=== PATIENT | female | born 1955 | race African-American/Black ===

== ENCOUNTER 2020-03-14 08:44 | Outpatient (REF) | payer OTHER, SELFPAY ==
--- NOTE | 2020-03-14 08:49 | MM_ITS ---
EXAMINATION: MM SCREENING DIGITAL BREAST TOMOSYNTHESIS, BILATERAL CLINICAL INFORMATION: Screening. Asymptomatic. The lifetime risk of breast cancer based on the Tyrer-Cuzick Model is 19.8%. COMPARISON: Mammography: November 24, 2018 and studies dating back to January 20, 2010 TECHNIQUE: Digital breast tomosynthesis is performed in both the craniocaudal and mediolateral oblique views along with computer-aided detection (CAD). Synthesized 2D images are generated from the tomosynthesis. FINDINGS: There are scattered areas of fibroglandular density (ACR BI-RADS breast composition Category b). There are no significant masses, abnormal calcifications, or other abnormalities. MM/MM tomosynthesis screening BI IMPRESSION: There are no significant changes from prior study. ASSESSMENT: BI-RADS 1: Negative RECOMMENDATION: Routine annual mammography screening. This patient's information was entered into a reminder system with a target due date for their next mammogram.
== END 2020-03-14 08:45 | disposition home or self-care (01) ==
LOC: HO.MAMMO 08:44
PROVIDERS: PCP Internal Medicine; Visit Provider Internal Medicine
DX: Z12.31 Encounter for screening mammogram for malignant neoplasm of breast (principal)
CPT/HCPCS: 77063; 77067

== ENCOUNTER 2020-03-18 09:04 | Outpatient (REF) | payer OTHER, SELFPAY ==
[2020-03-18 10:37] LABS: Alanine Aminotransferase 35 U/L (0-31); Albumin Level 4.5 g/dL (3.5-5.0); Alkaline Phosphatase 66 U/L (39-117); Anion Gap 13 (12-20); Aspartate Amino Transferase 31 U/L (5-31); Bilirubin Total 0.3 mg/dL (0.0-1.0); Blood Urea Nitrogen 19 mg/dL (9-16); Calcium 9.2 mg/dL (8.4-10.2); Carbon Dioxide 27 mmol/L (22-29); Chloride 103 mmol/L (96-108); Estimated Glomerular Filt Rate 56; Glucose Fasting 121 mg/dL (60-99); Potassium 3.9 mmol/l (3.3-5.1); Sodium 139 mmol/L (135-145); Total Protein 7.4 g/dL (6.5-8.0)
[2020-03-18 10:57] LABS: TSH reflex Free T4 1.01 mIU/mL (0.32-4.0)
[2020-03-18 11:10] LABS: Creatinine Urine 100.71 mg/dL; Microalbum/Creatinine Ratio Ur 29.7 ug/mg cr
== END 2020-03-18 09:05 | disposition home or self-care (01) ==
LOC: HO.LAB 09:04
PROVIDERS: PCP Internal Medicine; Visit Provider Physician Assistant
DX: E11.9 Type 2 diabetes mellitus without complications (principal)
CPT/HCPCS: 80053; 82043; 84443

== ENCOUNTER 2020-06-17 10:29 | Outpatient (REF) | payer OTHER, SELFPAY ==
[2020-06-17 11:43] LABS: Alanine Aminotransferase 34 U/L (0-31); Albumin Level 4.6 g/dL (3.5-5.0); Alkaline Phosphatase 63 U/L (39-117); Anion Gap 15 (12-20); Aspartate Amino Transferase 25 U/L (5-31); Bilirubin Total 0.4 mg/dL (0.0-1.0); Blood Urea Nitrogen 17 mg/dL (9-16); Calcium 9.7 mg/dL (8.4-10.2); Carbon Dioxide 26 mmol/L (22-29); Chloride 103 mmol/L (96-108); Cholesterol 292 mg/dL; Estimated Glomerular Filt Rate 59; Glucose Fasting 100 mg/dL (60-99); HDL Cholesterol 47 mg/dL; LDL Cholesterol Calculated 213 mg/dl; Potassium 4.1 mmol/L (3.3-5.1); Sodium 140 mmol/L (135-145); Total Protein 7.5 g/dL (6.5-8.0); Triglycerides 160 mg/dL
[2020-06-17 11:51] LABS: Estimated Average Glucose 123 mg/dL; Hemoglobin A1c % 5.9 %
[2020-06-17 11:53] LABS: Creatinine Urine 123.18 mg/dL; Microalbum/Creatinine Ratio Ur 19.4 ug/mg cr
[2020-06-17 12:06] LABS: TSH reflex Free T4 0.93 uIU/mL (0.32-4.0)
== END 2020-06-17 10:30 | disposition home or self-care (01) ==
LOC: HO.LAB 10:29
PROVIDERS: PCP Internal Medicine; Visit Provider Physician Assistant
DX: E11.9 Type 2 diabetes mellitus without complications (principal); I10 Essential (primary) hypertension
CPT/HCPCS: 36415; 80053; 80061; 82043; 83036; 84443

== ENCOUNTER 2020-11-17 08:27 | Outpatient (REF) | payer OTHER, SELFPAY ==
[2020-11-17 09:04] LABS: Hematocrit 40.5 % (37-47); Hemoglobin 13.5 g/dl (12.0-16.0); Mean Corpuscular HGB Conc 33.3 g/dl (31.0-35.0); Mean Corpuscular Hemoglobin 30.8 pg (27.0-33.0); Mean Corpuscular Volume 92.3 fL (80-98); Mean Platelet Volume 9.3 fL (9.4-12.3); Platelet Count 273 X10*3/uL (160-400); Red Blood Count 4.39 X10*6/uL (4.20-5.50); Red Cell Distribution Width 12.8 % (11.0-16.0); White Blood Count 7.2 X10*3/uL (4.8-10.8)
[2020-11-17 09:27] LABS: Glucose Urine UA NEG (NEG); Leukocyte Esterase Urine NEG (NEG); Nitrite Urine NEG (NEG); Specific Gravity - Urine 1.015 (1.005-1.025); Urine Blood NEG (NEG); Urine Ketones NEG (NEG); Urine Protein TRACE MG/DL (NEG-TRACE)
[2020-11-17 09:28] LABS: Appearance Urine HAZY; Color Urine YELLOW
[2020-11-17 09:33] LABS: Alanine Aminotransferase 55 U/L (0-31); Albumin Level 4.7 g/dL (3.5-5.0); Alkaline Phosphatase 70 U/L (39-117); Anion Gap 18 (12-20); Aspartate Amino Transferase 61 U/L (5-31); Bilirubin Direct 0.2 mg/dL (0.0-0.5); Bilirubin Total 0.5 mg/dL (0.0-1.0); Blood Urea Nitrogen 14 mg/dL (9-16); Calcium 10.1 mg/dL (8.4-10.2); Carbon Dioxide 24 mmol/L (22-29); Chloride 103 mmol/L (96-108); Cholesterol 316 mg/dL; Estimated Glomerular Filt Rate 52; Glucose Random 133 mg/dL (60-115); HDL Cholesterol 49 mg/dL; LDL Cholesterol Calculated 222 mg/dl; Potassium 4.6 mmol/L (3.3-5.1); Sodium 140 mmol/L (135-145); Total Protein 8.3 g/dL (6.5-8.0); Triglycerides 228 mg/dL
[2020-11-17 09:50] LABS: Thyroid Stimulating Hormone 1.14 uIU/mL (0.32-4.0)
== END 2020-11-17 08:28 | disposition home or self-care (01) ==
LOC: HO.LAB 08:27
PROVIDERS: PCP Internal Medicine; Visit Provider Internal Medicine
DX: Z00.01 Encounter for general adult medical examination with abnormal findings (principal); E78.00 Pure hypercholesterolemia, unspecified; E11.9 Type 2 diabetes mellitus without complications; F33.41 Major depressive disorder, recurrent, in partial remission; I10 Essential (primary) hypertension
CPT/HCPCS: 36415; 80048; 80061; 80076; 81003; 84443; 85027

== ENCOUNTER 2020-11-27 09:54 | Outpatient (REF) | payer OTHER, SELFPAY ==
[2020-11-29 21:17] LABS: HPV mRNA E6/E7 rflx Not Detected (Not Detected)
== END 2020-11-27 09:55 | disposition home or self-care (01) ==
LOC: HO.LAB 09:54
PROVIDERS: PCP Internal Medicine; Visit Provider Obstetrics & Gynecology
DX: Z01.419 Encounter for gynecological examination (general) (routine) without abnormal findings (principal); N95.1 Menopausal and female climacteric states
CPT/HCPCS: 87624; 88142

== ENCOUNTER 2020-12-12 13:30 | Outpatient (REF) | payer OTHER, SELFPAY | END 2020-12-12 13:31 | disposition home or self-care (01) | LOC: HO.LAB 13:30 | PROVIDERS: Visit Provider Nurse Practitioner Family | DX: Z20.822 Contact with and (suspected) exposure to COVID-19 (principal); R05 Cough | CPT/HCPCS: U0003; U0005 ==

== ENCOUNTER 2021-01-02 11:10 | Outpatient (REF) | payer OTHER, SELFPAY | END 2021-01-02 11:11 | disposition home or self-care (01) | LOC: HO.LAB 11:10 | PROVIDERS: Visit Provider Obstetrics & Gynecology | DX: R87.610 Atypical squamous cells of undetermined significance on cytologic smear of cervix (ASC-US) (principal) | CPT/HCPCS: 57454; 88305 ==

== ENCOUNTER 2021-01-03 10:55 | Outpatient (REF) | payer OTHER, SELFPAY ==
--- NOTE | ~2021-01-03 | MM_ITS ---
EXAMINATION: BONE DENSITOMETRY CLINICAL INDICATION: Menopausal female climacteric states. COMPARISON: No prior bone densitometry. Comparison made with CT abdomen and pelvis 05/14/2015 for lumbar segmentation assessment. TECHNIQUE: Using a [employer] DXA System (software version: 13.1) manufactured by [employer], dual-energy x-ray absorptiometry was performed of the lumbar spine and left hip. The images are of good technical quality. Summary results are attached. 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 L1-L4 (excluding L3): The data of L1-L4 has been changed to exclude the L3 vertebral body, because degenerative changes at this level may cause overestimation of lumbar spine density. BMD 1.489 g/cm2, Z-score 2.5, T-score 2.7, normal. LEFT FEMUR, NECK: BMD 1.020 g/cm2, Z-score -0.3, T-score -0.1, normal. LEFT FEMUR, TOTAL: BMD 1.153 g/cm2, Z-score 0.6, T-score 1.2, normal. IDENTIFIED RISK FACTORS: Menopause, hysterectomy. HISTORY OF FRACTURE: None listed. MEDICATIONS: Vitamin D. MM/XR DEXA axial skeleton IMPRESSION: 1. DIAGNOSIS: Normal bone density based on the lowest T-score value of -0.1 in the femoral neck applying World Health Organization criteria. 2. 10-YEAR FRACTURE RISK PREDICTION, FRAX: Major osteoporotic fracture (clinical spine, forearm, hip or shoulder) 2.8%. Hip fracture 0.1%. 3. Treatment Recommendations: NOF guidelines recommend consideration for treatment in postmenopausal women and men age 50 and older presenting with the following: -A hip or vertebral (clinical or morphometric) fracture. -T-score less than or equal to -2.5 at the femoral neck or spine after appropriate evaluation to exclude secondary causes. -Low bone mass at the hip or spine and a 10-year fracture probability by FRAX of greater than or equal to 3% for hip fracture or greater than or equal to 20% for major osteoporotic fracture based on the [place] adapted WHO algorithm. 4. Other Recommendations: All treatment decisions require clinical judgment and consideration of individual patient factors, including patient preferences, comorbidities, previous drug use, risk factors not captured in the FRAX model (e.g. frailty, falls, vitamin D deficiency, increased bone turnover, interval significant decline in bone density) and possible under or overestimation of fracture risk by FRAX. FUTURE SCAN RECOMMENDATION: People with diagnosed cases of osteoporosis or at high risk for fracture should have regular bone mineral density tests. For patients eligible for Medicare, routine testing is allowed once every 2 years. The testing frequency can be increased to one year for patients who have rapidly progressing disease, those who are receiving or discontinuing medical therapy to restore bone mass, or have additional risk factors.
== END 2021-01-03 10:56 | disposition home or self-care (01) ==
LOC: HO.MAMMO 10:55
PROVIDERS: Visit Provider Obstetrics & Gynecology
DX: Z13.820 Encounter for screening for osteoporosis (principal); N95.1 Menopausal and female climacteric states; Z98.890 Other specified postprocedural states; Z79.899 Other long term (current) drug therapy
CPT/HCPCS: 77080

== ENCOUNTER → 2021-01-16 12:58 | Outpatient (BNVA) | payer OTHER, SELFPAY | PROVIDERS: Visit Provider Obstetrics & Gynecology ==

== ENCOUNTER 2021-06-06 15:50 | Outpatient (REF) | payer OTHER, SELFPAY ==
--- NOTE | ~2021-06-06 | MM_ITS ---
EXAMINATION: MM SCREENING DIGITAL BREAST TOMOSYNTHESIS, BILATERAL CLINICAL INFORMATION: Screening. Asymptomatic. Family history breast cancer, mother. The lifetime risk of breast cancer based on the Tyrer-Cuzick Model is 19%. COMPARISON: Mammography: 03/14/2020, 11/24/2018, 11/01/2017 TECHNIQUE: Digital breast tomosynthesis is performed in both the craniocaudal and mediolateral oblique views along with computer-aided detection (CAD). Synthesized 2D images are generated from the tomosynthesis. FINDINGS: There are scattered areas of fibroglandular density (ACR BI-RADS breast composition Category b). There are no significant masses, abnormal calcifications, or other abnormalities. Parenchymal pattern is similar to prior studies. There is no developing density or architectural abnormality. The axilla and skin contours are unremarkable. No significant changes. MM/MM tomosynthesis screening BI IMPRESSION: No mammographic evidence of malignancy. ASSESSMENT: BI-RADS 1: Negative RECOMMENDATION: Routine annual mammography screening. This patient's information was entered into a reminder system with a target due date for their next mammogram.
== END 2021-06-06 15:51 | disposition home or self-care (01) ==
LOC: HO.MAMMO 15:50
PROVIDERS: PCP Internal Medicine; Visit Provider Internal Medicine
DX: Z12.31 Encounter for screening mammogram for malignant neoplasm of breast (principal)
CPT/HCPCS: 77063; 77067

== ENCOUNTER 2021-08-23 11:34 | Outpatient (REF) | payer OTHER, SELFPAY ==
[2021-08-23 12:44] LABS: Hematocrit 38.3 % (37.0-47.0); Hemoglobin 13.1 g/dl (12.0-16.0); Mean Corpuscular HGB Conc 34.2 g/dl (31.0-35.0); Mean Corpuscular Hemoglobin 31.4 pg (27.0-33.0); Mean Corpuscular Volume 91.8 fL (80.0-98.0); Mean Platelet Volume 9.7 fL (9.4-12.3); Platelet Count 302 X10*3/uL (160-400); Red Blood Count 4.17 X10*6/uL (4.20-5.50); Red Cell Distribution Width 12.5 % (11.0-16.0)
[2021-08-23 12:47] LABS: Appearance Urine CLEAR; Color Urine YELLOW; Glucose Urine UA NEG (NEG); Leukocyte Esterase Urine NEG (NEG); Nitrite Urine NEG (NEG); Urine Blood NEG (NEG); Urine Ketones NEG (NEG); Urine Protein NEG (NEG-TRACE)
[2021-08-23 14:03] LABS: Alanine Aminotransferase 28 U/L (0-31); Albumin Level 4.5 g/dL (3.5-5.0); Alkaline Phosphatase 59 U/L (39-117); Anion Gap 15 (12-20); Aspartate Amino Transferase 25 U/L (5-31); Bilirubin Direct 0.2 mg/dL (0.0-0.5); Bilirubin Total 0.5 mg/dL (0.0-1.0); Blood Urea Nitrogen 19 mg/dL (9-16); Calcium 9.9 mg/dL (8.4-10.2); Carbon Dioxide 26 mmol/L (22-29); Chloride 102 mmol/L (96-108); Cholesterol 275 mg/dL; Estimated Glomerular Filt Rate 57; Glucose Random 90 mg/dL (60-115); HDL Cholesterol 47 mg/dL; LDL Cholesterol Calculated 200 mg/dl; Potassium 4.1 mmol/L (3.3-5.1); Sodium 139 mmol/L (135-145); Total Protein 7.5 g/dL (6.5-8.0); Triglycerides 144 mg/dL
[2021-08-23 14:17] LABS: Thyroid Stimulating Hormone 0.99 uIU/mL (0.32-4.0)
== END 2021-08-23 11:35 | disposition home or self-care (01) ==
LOC: HO.LAB 11:34
PROVIDERS: Absent Provider Plastic Surgery; PCP Internal Medicine; Visit Provider Internal Medicine
DX: E11.9 Type 2 diabetes mellitus without complications (principal); E78.00 Pure hypercholesterolemia, unspecified
CPT/HCPCS: 36415; 80048; 80061; 80076; 81003; 84443; 85027

== ENCOUNTER 2022-01-08 09:25 | Outpatient (REF) | payer OTHER, SELFPAY ==
[2022-01-12 00:27] LABS: HPV mRNA E6/E7 rflx Not Detected (Not Detected)
== END 2022-01-08 09:26 | disposition home or self-care (01) ==
LOC: HO.LAB 09:25
PROVIDERS: Visit Provider Obstetrics & Gynecology
DX: N87.0 Mild cervical dysplasia (principal); R87.610 Atypical squamous cells of undetermined significance on cytologic smear of cervix (ASC-US)
CPT/HCPCS: 87624; 88142

== ENCOUNTER 2022-07-30 06:17 | Outpatient (REF) | payer OTHER, SELFPAY ==
[2022-07-30 07:36] LABS: Hematocrit 38.3 % (37.0-47.0); Hemoglobin 12.9 g/dl (12.0-16.0); Mean Corpuscular HGB Conc 33.7 g/dl (31.0-35.0); Mean Corpuscular Hemoglobin 30.6 pg (27.0-33.0); Mean Corpuscular Volume 90.8 fL (80.0-98.0); Mean Platelet Volume 9.7 fL (9.4-12.3); Platelet Count 349 X10*3/uL (160-400); Red Blood Count 4.22 X10*6/uL (4.20-5.50); Red Cell Distribution Width 12.2 % (11.0-16.0); White Blood Count 8.6 X10*3/uL (4.8-10.8)
[2022-07-30 07:51] LABS: Appearance Urine Clear; Color Urine Yellow; Glucose Urine UA Negative (Negative); Leukocyte Esterase Urine Negative (Negative); Nitrite Urine Negative (Negative); Specific Gravity - Urine 1.015 (1.005-1.025); Urine Blood Negative (Negative); Urine Ketones Negative (Negative); Urine Protein Negative (Neg-Trace)
[2022-07-30 08:15] LABS: Estimated Average Glucose 123 mg/dL; Hemoglobin A1c % 5.9 %
[2022-07-30 08:20] LABS: Alanine Aminotransferase 27 U/L (0-31); Albumin Level 4.4 g/dL (3.5-5.0); Alkaline Phosphatase 70 U/L (39-117); Anion Gap 15 (12-20); Aspartate Amino Transferase 25 U/L (5-31); Bilirubin Direct 0.2 mg/dL (0.0-0.5); Bilirubin Total 0.9 mg/dL (0.0-1.0); Blood Urea Nitrogen 22 mg/dL (9-16); Calcium 9.8 mg/dL (8.4-10.2); Carbon Dioxide 28 mmol/L (22-29); Chloride 101 mmol/L (96-108); Cholesterol 317 mg/dL; Estimated Glomerular Filt Rate 46; Glucose Random 115 mg/dL (60-115); HDL Cholesterol 50 mg/dL; LDL Cholesterol Calculated 232 mg/dl; Potassium 4.1 mmol/L (3.3-5.1); Sodium 140 mmol/L (135-145); Total Protein 7.4 g/dL (6.5-8.0); Triglycerides 179 mg/dL
[2022-07-30 08:40] LABS: Thyroid Stimulating Hormone 2.84 uIU/mL (0.32-4.0)
== END 2022-07-30 06:18 | disposition home or self-care (01) ==
LOC: HO.LAB 06:17
PROVIDERS: PCP Internal Medicine; Visit Provider Internal Medicine
DX: E11.9 Type 2 diabetes mellitus without complications (principal)
CPT/HCPCS: 36415; 80048; 80061; 80076; 81003; 83036; 84443; 85027

== ENCOUNTER 2022-12-05 08:49 | Outpatient (AMB) | payer OTHER, SELFPAY ==
--- NOTE | 2022-12-05 09:18 | MHC.PC.OV ---
Vital Signs 12/05/22 09:19 Height 5 ft 5 in Weight 195 lb 8 oz BMI 32.5 BP 110/70 Blood Pressure Location Lt brachial Position Sitting Pulse 58 Pulse Source Pulse Oximeter Pulse Oximetry (%) 100 Oxygen Delivery Method Room Air Intake Visit Reasons: 6 month follow up Intake Note: Patient is here to follow up on DM, HTN. Requesting a referral to Dermatology. Skiver Machine Required: No Pet Caretaker: Not Required per policy Accompanied by: Self / Same As Patient Allergies lisinopril [LISINOPRIL] Allergy (Severe, Verified 12/05/22 09:19) ? ANAPHYLAXIS Egg Derived [EGG DERIVED] Allergy (Unknown, Verified 12/05/22 09:19) ANAPHYLAXIS Egg White (Diagnostic) Allergy (Unknown, Uncoded 12/05/22 09:19) GI upset Tobacco use date assessed: 12/05/22 Fall risk assessment: No Falls in past year Last assessed Fall Risk: 12/05/22 Dental Screening Dental Screen Date: 12/05/22 Did you have a dental visit in the last 12 months?: Yes Did you have a dental problem in the last 6 months where you did not have access to dental care?: No Was dental information given to patient?: Patient has dentist HPI 6 month follow up HPI Details 67-year-old female presents to the office to discuss her chronic medical conditions. Patient has a new insurance and would like a there referral to Dermatology be recent again. This is for her psoriasis. Patient is undergoing physical therapy to improve mobility in her right and left arms and shoulder. This is after her double mastectomy. Her depression symptoms are stable. Able to function and do all activities of daily living. Compliant with all medications. Unable to hear from the left ear. [facility] Medical History HTN (hypertension) Hypercholesterolemia Major depression in partial remission Obesity (BMI 30.0-34.9) Transgender Surgical History (Updated 12/05/22 @ 09:26 by CATALINO Choudhury) Glaucoma, left eye History of dental surgery History of hysterectomy History of mastectomy History of oral surgery Family History Father No problems noted. Mother Breast cancer Brother AIDS Other Mental health disorder Substance use disorder Social History Housing: House Alcohol intake: current Alcohol intake frequency: a few times a month Alcohol type: beer Patient Tobacco Use Status: Never used Tobacco e-Cigarette/Vaping Use: Never Used Second Hand Smoke Exposure: No service: No Current occupational status: employed Cognitive needs: No Hearing needs: No Vision needs: Yes (glasses) Female Reproductive History Menstrual Age of Menarche: 12 Questionnaire Thrive Questionnaire Date Thrive assessed: 06/13/22 RK-7 AMB Questionnaire RK-7 Date RK - 7 assessed: 06/13/22 Source: Developed by Drs. Shekhar Yancey, Iesha Phoenix, Antonio Lux and colleagues, with an educational kelly from [employer]. Physical exam (Primary Care) Vital Signs: Last Vital Signs Pulse 58 12/05/22 09:19 BP 110/70 12/05/22 09:19 Pulse Ox 100 12/05/22 09:19 Oxygen Delivery Method Room Air 12/05/22 09:19 BMI result Body Mass Index 32.5 Tobacco/Smoking Status: Tobacco use Status Tobacco use date assessed 12/05/22 12/05/22 09:28 Patient Tobacco Use Status Never used Tobacco 12/05/22 09:28 e-Cigarette/Vaping Use Never Used 12/05/22 09:28 Thrive Assessment: Date of Thrive Assessment Date Thrive assessed 06/13/22 12/05/22 09:28 Const General: cooperative, healthy appearing and comfortable HENMT Other: Left ear: Wax present. Tympanic membrane not visualized. Head: Yes normal to inspection and Yes atraumatic Eyes General: appearance normal, both eyes and all related structures Neck Neck: Yes normal visual inspection and Yes full ROM Chest Chest palpation & inspection: normal inspection of the chest Resp Effort & Inspection: normal respiratory effort Auscultation: clear to auscultation bilaterally Cardio Jugular venous distension: no JVD Palpation: normal PMI Rate: regular rate Heart sounds: S1 normal heart sound present and S2 normal heart sound present GI Palpation (GI): Soft to palpation and No hepatosplenomegaly present Extrem General: Yes normal to inspection and Yes full ROM Office Procedures Cerumen Removal From which ear canal was the cerumen removed: left Removal: otoscope w/curette and cerumen loop/spoon Notes: patient tolerated procedure well [id number] Wax Removal by Spoon/Curette Results AMB Hemoglobin A1c AMB Hemoglobin A1c 5.9 % Last Edit by CATALINO Choudhury on 12/05/22 09:29 Results Reviewed Results Reviewed: Laboratory Last Values Hgb A1c (Clinic) 5.9 % (4.0-6.0) 12/05/22 09:17 Assessment and Plan Assessment & Plan (1) Major depression in partial remission: Code(s): F32.4 - Major depressive disorder, single episode, in partial remission Qualifiers: Major depression recurrence: recurrent Qualified Code(s): F33.41 - Major depressive disorder, recurrent, in partial remission Plan: Continue current medications. (2) Diabetes: Code(s): E11.9 - Type 2 diabetes mellitus without complications Qualifiers: Diabetes mellitus type: type 2 Diabetes mellitus group home insulin use: without intermediate manager use Diabetes mellitus complication status: without complication Qualified Code(s): E11.9 - Type 2 diabetes mellitus without complications Plan: Blood work has been ordered. Continue medications at same dosage. (3) Obesity (BMI 30.0-34.9): Code(s): E66.9 - Obesity, unspecified Plan: Counseling on the importance of diet and exercise done. (4) Impacted cerumen, left ear: Code(s): H61.22 - Impacted cerumen, left ear Plan: Wax removed. Patient tolerated the procedure well. Orders: Orders AMB Hemoglobin A1c Today E11.9 - Type 2 diabetes mellitus without complications AMB Cerumen Removal Today H61.22 - Impacted cerumen, left ear Coding Level of Care Code Est Pt Level 4 (83052) Diagnoses Major depression in partial remission F33.41 Major depression recurrence: recurrent Diabetes E11.9 Diabetes mellitus type: type 2 Diabetes mellitus intermediate manager insulin use: without intermediate manager use Diabetes mellitus complication status: without complication Obesity (BMI 30.0-34.9) E66.9 Impacted cerumen, left ear H61.22 CPT Codes Office Procedure - CPT: 30496-Wrc Wax Removal by Spoon/Curette ([id number])
[2022-12-05 09:19] VITALS: BP 110/70; PULSE 58; O2SAT 100; BMI 32.5
== END 2022-12-05 10:06 | disposition home or self-care (01) ==
PROVIDERS: Visit Provider Internal Medicine
DX: E11.9 Type 2 diabetes mellitus without complications (principal); E66.9 Obesity, unspecified; Z68.32 Body mass index [BMI] 32.0-32.9, adult; H61.22 Impacted cerumen, left ear; F33.41 Major depressive disorder, recurrent, in partial remission
CPT/HCPCS: 69210; 83036; 99214

== ENCOUNTER 2023-01-03 09:10 | Outpatient (REF) | payer OTHER, SELFPAY ==
[2023-01-03 10:03] LABS: Hemoglobin 13.5 g/dl (12.0-16.0); Mean Corpuscular HGB Conc 32.9 g/dl (31.0-35.0); Mean Corpuscular Hemoglobin 30.8 pg (27.0-33.0); Mean Corpuscular Volume 93.4 fL (80.0-98.0); Mean Platelet Volume 9.9 fL (9.4-12.3); Platelet Count 250 X10*3/uL (160-400); Red Blood Count 4.39 X10*6/uL (4.20-5.50); Red Cell Distribution Width 12.4 % (11.0-16.0); White Blood Count 5.9 X10*3/uL (4.8-10.8)
[2023-01-03 11:02] LABS: Alanine Aminotransferase 27 U/L (0-31); Albumin Level 4.4 g/dL (3.5-5.0); Alkaline Phosphatase 66 U/L (39-117); Anion Gap 12 (12-20); Aspartate Amino Transferase 25 U/L (5-31); Bilirubin Direct 0.1 mg/dL (0.0-0.5); Bilirubin Total 0.3 mg/dL (0.0-1.0); Blood Urea Nitrogen 22 mg/dL (9-16); Calcium 10.1 mg/dL (8.4-10.2); Carbon Dioxide 27 mmol/L (22-29); Chloride 106 mmol/L (96-108); Cholesterol 244 mg/dL (<200); Estimated Glomerular Filt Rate 47; Glucose Random 117 mg/dL (60-115); HDL Cholesterol 47 mg/dL (>40); LDL Cholesterol Calculated 176 mg/dL (<100); Potassium 4.2 mmol/L (3.3-5.1); Sodium 141 mmol/L (135-145); Total Protein 7.9 g/dL (6.5-8.0); Triglycerides 105 mg/dL (<150)
[2023-01-03 11:03] LABS: Estimated Average Glucose 114 mg/dL; Hemoglobin A1c % 5.6 % (<6.0)
[2023-01-03 12:49] LABS: Creatinine Urine 151.57 mg/dL; Microalbum/Creatinine Ratio Ur 7.9 ug/mg cr (<30)
== END 2023-01-03 09:11 | disposition home or self-care (01) ==
LOC: HO.LAB 09:10
PROVIDERS: PCP Internal Medicine; Visit Provider Internal Medicine
DX: F32.4 Major depressive disorder, single episode, in partial remission (principal); E11.9 Type 2 diabetes mellitus without complications
CPT/HCPCS: 36415; 80048; 80061; 80076; 82043; 83036; 85027

== ENCOUNTER 2023-01-28 07:22 | Outpatient (AMB) | payer OTHER, SELFPAY ==
--- NOTE | 2023-01-28 07:30 | MHC.OFFVIS ---
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 ANAPHYLAXIS Egg Derived [EGG DERIVED] Allergy (Unknown, Verified 01/28/23 07:33) ANAPHYLAXIS Egg White (Diagnostic) Allergy (Unknown, Uncoded 01/28/23 07:33) GI upset Post menopausal: Yes HPI HPI Comments History of Present Illness Details Presenting for annual exam. No complaints. Last Pap/HPV was negative, in 11/29 Pap/HPV showed ASCUS HPV negative, colpo biopsy/ECC showed LILIANA 1 Last Mammogram was BI-RADS 1 in 06/02, patient had bilateral mastectomy for transgender reasons Last Colonoscopy was 5 years ago, next screening colonoscopy is due this year year Last DEXA scan was in 01/30 showed osteopenia in the low risk category [facility] Medical History (Updated 01/28/23 @ 07:45 by Minh Barron MD) Dysplasia of cervix, low grade (LILIANA 1) Transgender Hypercholesterolemia Major depression in partial remission Obesity (BMI 30.0-34.9) HTN (hypertension) Surgical History History of dental surgery History of mastectomy Glaucoma, left eye History of oral surgery History of hysterectomy Family History Father No problems noted. Mother Breast cancer Brother AIDS Other Mental health disorder Substance use disorder Social History Housing: House Alcohol intake: current Alcohol intake frequency: a few times a month Alcohol type: beer Patient Tobacco Use Status: Never used Tobacco e-Cigarette/Vaping Use: Never Used Second Hand Smoke Exposure: No service: No Current occupational status: employed Cognitive needs: No Hearing needs: No Vision needs: Yes (glasses) Female Reproductive History Menstrual Age of Menarche: 12 Menopause type: natural Review of Systems Const All systems reviewed & are unremarkable except as noted in HPI and below Card Reports as per HPI Resp Reports as per HPI GI Reports as per HPI and Reports no additional complaints Reports as per HPI Physical Exam Vital Signs: Last Vital Signs BP 122/76 01/28/23 07:32 BMI result Body Mass Index 30.3 Const General: cooperative, healthy appearing and comfortable Chest Other: Patient is status post bilateral mastectomy Resp Effort & Inspection: normal respiratory effort Auscultation: clear to auscultation bilaterally Percussion: percussion normal Cardio Palpation: normal PMI Rate: regular rate Rhythm: regular rhythm Heart sounds: no murmurs and no rubs Peripheral pulses: Peripheral pulses 2+ throughout GI Inspection: Yes normal to inspection Palpation (GI): Soft to palpation, nontender, no guarding, not rigid and No hepatosplenomegaly present Percussion: Yes normal to percussion Auscultation: normal bowel sounds Rectal Exam - Female: deferred General: Yes bladder normal to palpation External Female Exam: No lesion Speculum Exam - Vagina: normal appearance of the vagina, normal palpation, normal vaginal discharge and not erythematous Speculum Exam - Cervix: normal appearance of the cervix and normal palpation Bimanual exam- vagina & uterus: normal bimanual exam, normal palpation, uterine size normal, bladder normal to palpation, consistency normal and normal palpation Bimanual Exam- Adnexa, other: normal adnexae, no masses and no tenderness Assessment & Plan Assessment & Plan (1) Well woman exam: Comment: LILIANA 1 in 2020 Code(s): Z01.419 - Encounter for gynecological examination (general) (routine) without abnormal findings Plan: Co testing not this year since the patient had normal co testing last year preceded by LILIANA 1, per ASCCP guidelines next co testing will be in 2024. Counseled the patient about the recommended dietary allowance of 1200 mg of Calcium & 800 IU of vitamin D. Referred her for screening colonoscopy done. Will order DEXA scan . The patient was instructed to perform monthly self-breast exams and to schedule a 2 week DEXA scan follow-up appointment and an annual exam in a year; all questions answered and the patient verbalized understanding. Orders: Orders XR DEXA axial skeleton Today N95.1 - Menopausal and female climacteric states Referrals Gastroenterology Referral Z12.11 - Encounter for screening for malignant neoplasm of colon Coding Level of Care Code Est Pt Prev Care >65y(95705) Diagnoses Well woman exam Z01.419
[2023-01-28 07:32] VITALS: BP 122/76; BMI 30.3
== END 2023-01-28 07:54 | disposition home or self-care (01) ==
PROVIDERS: Visit Provider Obstetrics & Gynecology
DX: Z01.419 Encounter for gynecological examination (general) (routine) without abnormal findings (principal)
CPT/HCPCS: 99397

== ENCOUNTER → 2023-01-28 07:22 | Outpatient (BNVA) | payer OTHER, SELFPAY | PROVIDERS: Visit Provider Obstetrics & Gynecology ==

== ENCOUNTER 2023-02-19 08:04 | Outpatient (REF) | payer OTHER, SELFPAY | END 2023-02-19 08:05 | disposition home or self-care (01) | LOC: HO.MAMMO 08:04 | PROVIDERS: PCP Internal Medicine; Visit Provider Obstetrics & Gynecology | DX: Z13.820 Encounter for screening for osteoporosis (principal); Z78.0 Asymptomatic menopausal state | CPT/HCPCS: 77080 ==

== ENCOUNTER 2023-03-26 07:29 | Outpatient (AMB) | payer OTHER, SELFPAY ==
--- NOTE | 2023-03-26 07:30 | MHC.OFFVIS ---
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 ANAPHYLAXIS Egg Derived [EGG DERIVED] Allergy (Unknown, Verified 03/26/23 07:33) ANAPHYLAXIS Egg White (Diagnostic) Allergy (Unknown, Uncoded 03/26/23 07:33) GI upset Post menopausal: Yes HPI HPI Comments History of Present Illness Details The patient is presenting for follow up regarding DEXA scan results. T score @ spine and femoral Neck respectively were=+2.8 /+0.1 and 10 year FRAX risk for severe osteoporosis and fracture was not computed Bone density at the spine and femur was +5.6%,-3% respectively compared to the baseline BMD. PFSH Medical History Dysplasia of cervix, low grade (LILIANA 1) Transgender Hypercholesterolemia Major depression in partial remission Obesity (BMI 30.0-34.9) HTN (hypertension) Surgical History History of dental surgery History of mastectomy Glaucoma, left eye History of oral surgery History of hysterectomy Family History Father No problems noted. Mother Breast cancer Brother AIDS Other Mental health disorder Substance use disorder Social History Housing: House Alcohol intake: current Alcohol intake frequency: a few times a month Alcohol type: beer Patient Tobacco Use Status: Never used Tobacco e-Cigarette/Vaping Use: Never Used Second Hand Smoke Exposure: No service: No Current occupational status: employed Cognitive needs: No Hearing needs: No Vision needs: Yes (glasses) Female Reproductive History Menstrual Age of Menarche: 12 Review of Systems Const All systems reviewed & are unremarkable except as noted in HPI and below Reports as per HPI and Reports no additional complaints GI Reports no additional complaints Reports no additional complaints Assessment & Plan Assessment & Plan (1) At risk for bone density loss: Code(s): Z91.89 - Other specified personal risk factors, not elsewhere classified Plan: Discussed with the patient the DEXA results and FRAX risk. FRAX risk and T score showed no evidence of bone loss. Discussed with the patient all the options for osteoporosis prevention including lifestyle modifications including Ca+D supplements 1200 mg po qd/800 MIU, Weight bearing exercises and proteine supplements. The patient verbalized understanding and agreed plan will repeat DEXA in 2 years. Coding Level of Care Code Est Pt Level 3 (77967) Diagnoses At risk for bone density loss Z91.89
[2023-03-26 07:33] VITALS: BP 110/62
== END 2023-03-26 09:22 | disposition home or self-care (01) ==
LOC: HO.HWS 07:30
PROVIDERS: PCP Internal Medicine; Visit Provider Obstetrics & Gynecology
DX: Z91.89 Other specified personal risk factors, not elsewhere classified (principal)
CPT/HCPCS: 99213

== ENCOUNTER → 2023-03-26 07:29 | Outpatient (BNVA) | payer OTHER, SELFPAY | PROVIDERS: PCP Internal Medicine; Visit Provider Obstetrics & Gynecology ==

== ENCOUNTER 2023-04-08 08:27 | Outpatient (AMB) | payer OTHER, SELFPAY ==
[2023-04-08 08:30] VITALS: BMI 30.9
--- NOTE | 2023-04-08 08:30 | A.OFFVIS_ITS ---
Intake VS Expanded 04/08/23 08:30 Height 5 ft 5 in Weight 185 lb 10.067 oz BMI 30.9 Intake Visit Reasons: Type 2 diabetes/confirmed Allergies lisinopril [LISINOPRIL] Allergy (Severe, Verified 03/26/23 07:33) ? ANAPHYLAXIS Egg Derived [EGG DERIVED] Allergy (Unknown, Verified 03/26/23 07:33) ANAPHYLAXIS Egg White (Diagnostic) Allergy (Unknown, Uncoded 03/26/23 07:33) GI upset HPI Nutrition Presentation Details Pt presents for MNT for T2DM not on insulin, hypercholesterolemia, obesity, essential HTN, osteopenia. The Pt was referred by Emilia Coleman from [facility]. Pt reports making dietary modficiations for weight loss and improvement in BG. Pt reports trying reducing calories by following a combination of fasting, vegan and non vegan meals in no consistent pattern. Typically Fasts from 7pm-11 am Then has coffee with milk or milk alternative and vitamins 2pm meal : Vegan and vegetarian meals th ree time/week 6 pm meal rice/tofu, water or coconut wa ter, coffee or salad with soy protein ) or pasta /poultry and salad w olive oil and vinegar or soup turkey/carrot etoh- occ smoking: denies physical activity: 3 times/wk at the gym (combination of aerobic and anaerobic for 30 min) fluids per day : 16-24 oz/d fish: 0-1/wk fruits: 0-1/d ve-6 serving/d dairy 2/d ( calcium fortified dairy alternatives) SJK-Rukbxwg-Rg.Jeor Equation Height 5 ft 5 in Weight 186 lb Resting Metabolic Rate 1384.07 Calculated Activity Level Mild Activity Calories Needed to Maintain Weight 1903.10 Diagnosis Nutrition problem #1 food nutri know defi As related to (etiology) #1 diagnosis As evidenced by (sign/symptom) #1 no prior educ - nutri rec Monitoring/Goals Nutrition problem monitoring level of knowledge/skill Nutrition goal/outcome list 3 diab diet goals (Reduce chol, reduce sugar/carbs/include calcium fortified foos choices ) Outcome progress verbalized understanding Learning/Education Readiness to learn good Stages of change action Educational materials provided Yes (meal planning) Most Recent Diabetes Results: Microalb/Creat Ratio 7.9 ug/mg cr (<30) 01/03/23 Cholesterol 244 mg/dL (<200) H 01/03/23 HDL Cholesterol 47 mg/dL (>40) 01/03/23 Triglycerides 105 mg/dL (<150) 01/03/23 Creatinine 1.16 mg/dL (0.5-1.4) 01/03/23 Blood Urea Nitrogen 22 mg/dL (9-16) H 01/03/23 Sodium 141 mmol/L (135-145) 01/03/23 Potassium 4.2 mmol/L (3.3-5.1) 01/03/23 Chloride 106 mmol/L (96-108) 01/03/23 Carbon Dioxide 27 mmol/L (22-29) 01/03/23 Calcium 10.1 mg/dL (8.4-10.2) 01/03/23 AST 25 U/L (5-31) 01/03/23 ALT 27 U/L (0-31) 01/03/23 Total Protein 7.9 g/dL (6.5-8.0) 01/03/23 Albumin 4.4 g/dL (3.5-5.0) 01/03/23 [facility] [place] Medical History Dysplasia of cervix, low grade (LILIANA 1) Transgender Hypercholesterolemia Major depression in partial remission Obesity (BMI 30.0-34.9) HTN (hypertension) Surgical History History of dental surgery History of mastectomy Glaucoma, left eye History of oral surgery History of hysterectomy Family History Father No problems noted. Mother Breast cancer Brother AIDS Other Mental health disorder Substance use disorder Social History Housing: House Alcohol intake: current Alcohol intake frequency: a few times a month Alcohol type: beer Patient Tobacco Use Status: Never used Tobacco e-Cigarette/Vaping Use: Never Used Second Hand Smoke Exposure: No service: No Current occupational status: employed Cognitive needs: No Hearing needs: No Vision needs: Yes (glasses) Female Reproductive History Menstrual Age of Menarche: 12 Assessment & Plan Assessment & Plan (1) Diabetes: Code(s): E11.9 - Type 2 diabetes mellitus without complications Qualifiers: Diabetes mellitus type: type 2 Diabetes mellitus longterm insulin use: without intermediate project manager use Diabetes mellitus complication status: without complication Qualified Code(s): E11.9 - Type 2 diabetes mellitus without complications Plan: wt: 84 kg (03/2023) Est kcal needs as per MSJ: 1900 (40% carb, 30% protein/fat) Est fluid needs as per 25-30 ml/d: 2520 Est prot per day as per 1 g/kg bw: 84 Recommend fiber intake : 8-10 g per day and gradually increase to 25-28 g per day for women and 35-38 g for men or as tolerated Recommend sodium intake per day : less than 2000 mg Educated patient on: ( R = reviewed V = verbalizes understanding N/R = needs review N/A = not applicable * Food sources of carbohydrate, adequate serving sizes and its role in various health conditions: R * Differences between complex carbohydrates a simple carbohydrates, role of fiber in diet: R * Differences between types of fats and role in diet (mono on saturated fat fatty acids, saturated fatty acids, trans fats): R * Food sources of sodium in salt and healthy modifications for heart health in kidney health: NR * Vitamins and minerals: NR - reinforced calcium/vit D sources of foods and combination with exercise * Healthy plate method concept: R V * Physical activity: Benefits a precaution: R * Hypoglycemia protocol (rule of 15): NR * Dietary prevention of Hyperglycemia: R * Mindfful eating strategies Patient Instructions: Incorporate foods with calcium in them- goal 1200 mg calcium per day (beans, nina ty, calcium fortified tofu/dairy/alternatives) Reduce on total carbohydrate at meal time goal less than 60 g of carb at meal time following healthy plate method practice mindful eating strategies Coding Level of Care Code Nutr Indiv Intake (56055) Diagnoses Type 2 diabetes mellitus without complication, without long-term current use of insulin E11.9 Diabetes mellitus type: type 2 Diabetes mellitus longterm insulin use: without intermediate project manager use Diabetes mellitus complication status: without complication Time Spent (min) 30
[2023-04-15 20:56] VITALS: BMI 30.9
== END 2023-04-08 09:09 | disposition home or self-care (01) ==
PROVIDERS: PCP Internal Medicine; Visit Provider Dietitian, Registered
DX: E11.9 Type 2 diabetes mellitus without complications (principal)

== ENCOUNTER → 2023-04-08 08:27 | Outpatient (BNVA) | payer SELFPAY | PROVIDERS: PCP Internal Medicine; Visit Provider Dietitian, Registered | DX: E11.9 Type 2 diabetes mellitus without complications (principal); Z71.3 Dietary counseling and surveillance | CPT/HCPCS: 97802 ==

== ENCOUNTER 2023-05-26 08:17 | Outpatient (AMB) | payer OTHER, SELFPAY ==
--- NOTE | 2023-05-26 08:23 | A.OFFVIS_ITS ---
Intake Vital Signs 05/26/23 08:26 Height 5 ft 5 in Weight 180 lb 12.465 oz BMI 30.1 BP 119/68 Blood Pressure Location Lt brachial Position Sitting Pulse 68 Intake Visit Reasons: Colonoscopy Screening Intake Note: Cj presents in the office as a colonoscopy screening. CC: She states that she has had Dr Serrano in the past and she had precancerous polyps. Allergies lisinopril [LISINOPRIL] Allergy (Severe, Verified 05/26/23 08:27) ? ANAPHYLAXIS Egg Derived [EGG DERIVED] Allergy (Unknown, Verified 05/26/23 08:27) ANAPHYLAXIS Egg White (Diagnostic) Allergy (Unknown, Uncoded 05/26/23 08:27) GI upset HPI Colonoscopy Screening HPI Details 67 year old? female here today for pre c olonoscopy screening.? Last colonoscopy in June of 2019 no polyps found. History of tubular adenoma in the past and recommendation to return in 5 years. She is not due till June of 2024. Patient denies any melena, hematochezia, unintentional weight loss or ribbon like stools. Patient reports that she is not moving her bowels well. Constipation for 1 or 2 days. Patient denies dyspepsia, dysphagia or odynophagia. Denies any other GI concerning symptoms. [facility] Medical History (Updated 03/26/23 @ 07:34 by Minh Barron MD) Dysplasia of cervix, low grade (LILIANA 1) Transgender Hypercholesterolemia Major depression in partial remission Obesity (BMI 30.0-34.9) HTN (hypertension) Surgical History (Updated 05/26/23 @ 08:26 by CATALINO Tomlinson) Hx of colonoscopy History of dental surgery History of mastectomy Glaucoma, left eye History of oral surgery History of hysterectomy Family History (Updated 05/26/23 @ 08:27 by CATALINO Tomlinson) Father No problems noted. Mother Breast cancer Brother AIDS Maternal Aunt Colon cancer Other Mental health disorder Substance use disorder Social History Housing: House Alcohol intake: current Alcohol intake frequency: a few times a month Alcohol type: beer Patient Tobacco Use Status: Never used Tobacco e-Cigarette/Vaping Use: Never Used Second Hand Smoke Exposure: No service: No Current occupational status: employed Cognitive needs: No Hearing needs: No Vision needs: Yes (glasses) Female Reproductive History Menstrual Age of Menarche: 12 Review of Systems Const Denies weight gain and Denies weight loss ENT Reports no additional complaints, Denies dysphagia and Denies odynophagia Card Reports no additional complaints Resp Reports no additional complaints GI Denies abdominal pain, Denies belching, Denies melena, Denies bloating, Reports constipation, Denies dysphagia, Denies excessive flatus, Denies dyspepsia, Denies heartburn, Denies diarrhea, Denies loose stools, Denies nausea, Denies odynophagia and Denies vomiting Reports no additional complaints Musc Reports no additional complaints Neuro Reports no additional complaints Psych Reports no additional complaints Endo Reports no additional complaints Physical Exam Vital Signs: Last Vital Signs Pulse 68 05/26/23 08:26 BP 119/68 05/26/23 08:26 BMI result Body Mass Index 30.1 Const General: healthy appearing, no acute distress and well developed Nutritional Appearance: obese Orientation/consciousness: patient oriented x3 HEENT Head: Yes normal to inspection, Yes normocephalic and Yes atraumatic Face and sinus: Yes normal facial exam Mouth: Normal oral and palatal mucosa present Throat: Yes posterior oropharynx normal, Yes tonsils normal and Yes uvula midline Eyes General: appearance normal, both eyes and all related structures Neck Neck: Yes normal visual inspection, Yes full ROM and Yes trachea midline Thyroid: Thyroid normal Resp Effort & Inspection: normal respiratory effort, able to speak in complete sentences, no tracheal deviation and symmetric chest movement Auscultation: clear to auscultation bilaterally Cardio Rate: regular rate GI Inspection: Yes normal to inspection, No distended and Yes obesity Palpation (GI): Soft to palpation, not firm, nontender and No hepatosplenomegaly present Auscultation: normal bowel sounds General: Yes no CVA tenderness Back/Spine/Pelvis Back: no CVA tenderness Skin General skin exam: elasticity normal, turgor normal and dry skin Neuro General: patient oriented x3 Psych Appearance: grossly normal Mental Status: mental status grossly normal Assessment & Plan Assessment & Plan (1) Screen for colon cancer: Code(s): Z12.11 - Encounter for screening for malignant neoplasm of colon Plan: (2) Constipation: Code(s): K59.00 - Constipation, unspecified Qualifiers: Constipation type: slow transit constipation Qualified Code(s): K59.01 - Slow transit constipation Plan Patient will start taking magnesium daily. Patient will increase fluids intake and activity to promote better bowel motility. Patient will return in April and we will discuss going for colonoscopy. Patient will call our office sooner if she will have any GI concerning symptoms. Patient and her senior data warehouse architect are agreeable to plan of care and verbalizes understanding of instructions. She was given the opportunity to ask questions and all questions answered. Thank you for allowing me to participate in her care Medications: New magnesium oxide 400 mg PO DAILY 90 caps 2RF K59.04 - Chronic idiopathic con stipation Coding Level of Care Code New Pt Level 3 (14458) Diagnoses Screen for colon cancer Z12.11 Slow transit constipation K59.01 Constipation type: slow transit constipation Time Spent (min) 40 Comment 30 minutes spent with patient and additional 10 minutes spent reviewing her records
[2023-05-26 08:26] VITALS: BP 119/68; PULSE 68; BMI 30.1
== END 2023-05-26 08:53 | disposition home or self-care (01) ==
PROVIDERS: PCP Internal Medicine; Visit Provider Nurse Practitioner Family
DX: K59.01 Slow transit constipation (principal); Z01.818 Encounter for other preprocedural examination; Z12.11 Encounter for screening for malignant neoplasm of colon
CPT/HCPCS: 99203

== ENCOUNTER → 2023-05-26 08:17 | Outpatient (BNVA) | payer OTHER, SELFPAY | PROVIDERS: PCP Internal Medicine; Visit Provider Nurse Practitioner Family ==

== ENCOUNTER 2023-06-05 07:49 | Outpatient (AMB) | payer OTHER, SELFPAY ==
[2023-06-05 07:59] VITALS: BP 114/70; PULSE 71; O2SAT 98; BMI 29.3
--- NOTE | 2023-06-05 07:59 | A.OFFPC_ITS ---
Vital Signs 06/05/23 07:59 Height 5 ft 5 in Weight 176 lb BMI 29.3 BP 114/70 Blood Pressure Location Lt brachial Position Sitting Pulse 71 Pulse Source Pulse Oximeter Pulse Oximetry (%) 98 Oxygen Delivery Method Room Air Intake Visit Reasons: 6 month f/u Allergies lisinopril [LISINOPRIL] Allergy (Severe, Verified 06/05/23 08:24) ? ANAPHYLAXIS Egg Derived [EGG DERIVED] Allergy (Unknown, Verified 06/05/23 08:24) ANAPHYLAXIS Egg White (Diagnostic) Allergy (Unknown, Uncoded 06/05/23 08:24) GI upset Medication List - Last Reconciled 06/05/23 by Jhony Luna MD betamethasone dipropionate 0.05% 1 appl topical BID blood sugar diagnostic As directed cariprazine (Vraylar) 1.5 mg PO DAILY cholecalciferol (vitamin D3) 25 mcg PO DAILY epinephrine (EpiPen) 0.3 mg (0.3 mL) IM Q30M PRN lancets As directed lorazepam 1 mg PO BID lorazepam 0.5 mg PO BID PRN losartan-hydrochlorothiazide 100-12.5 mg 1 tab PO DAILY magnesium oxide 400 mg PO DAILY methylphenidate HCl 20 mg PO BID methylphenidate HCl 10 mg PO BID Tobacco use date assessed: 06/05/23 Fall risk assessment: No Falls in past year Last assessed Fall Risk: 06/05/23 Dental Screening Dental Screen Date: 06/05/23 Did you have a dental visit in the last 12 months?: Yes Did you have a dental problem in the last 6 months where you did not have access to dental care?: No Was dental information given to patient?: Patient has dentist HPI 6 month f/u HPI Details 67-year-old patient presents to the [facility] to discuss her medical condition. Patient is under a lot of mental stress due to her work. She is compliant with medications. Able to function and do activities of daily living. She has a new psychiatrist and she is getting adjusted to her. Not sleeping very well recently due to the stress. Appetite is normal. Continues to exercise. [facility] Medical History Dysplasia of cervix, low grade (LILIANA 1) Transgender Hypercholesterolemia Major depression in partial remission Obesity (BMI 30.0-34.9) HTN (hypertension) Surgical History Hx of colonoscopy History of dental surgery History of mastectomy Glaucoma, left eye History of oral surgery History of hysterectomy Family History Father No problems noted. Mother Breast cancer Brother AIDS Maternal Aunt Colon cancer Other Mental health disorder Substance use disorder Social History Housing: House Alcohol intake: current Alcohol intake frequency: a few times a month Alcohol type: beer Patient Tobacco Use Status: Never used Tobacco e-Cigarette/Vaping Use: Never Used Second Hand Smoke Exposure: No service: No Current occupational status: employed Cognitive needs: No Hearing needs: No Vision needs: Yes (glasses) Female Reproductive History Menstrual Age of Menarche: 12 Questionnaire PHQ-9 Over the last 2 weeks, how often have you been bothered by any of the following problems? 1. Little interest or pleasure in doing things: not at all 2. Feeling down, depressed, or hopeless: not at all 3. Trouble falling or staying asleep, or sleeping too much: not at all 4. Feeling tired or having little energy: not at all 5. Poor appetite or overeating: not at all 6. Feeling bad about yourself - or that you are a failure or have let yourself or your family down: not at all 7. Trouble concentrating on things, such as reading the newspaper or watching television: not at all 8. Moving or speaking so slowly that other people could have noticed. Or the opposite - being so fidgety or restless that you have been moving around a lot more than usual: not at all 9. Thoughts that you would be better off or of hurting yourself in some way: not at all Total score: 0 Depression Screening Interpretation: Negative Depression Screening Done: Yes Source: Developed by Drs. Shekhar Yancey, Iesha Phoenix, Antonio Lux and colleagues, with an educational kelly from [employer]. Thrive Questionnaire Date Thrive assessed: 06/05/23 I am a: Patient What is your living situation today?: I have a steady place to live Within the past 12 months, did the food you bought not last and you didn't have the money to get more?: Never true Within the past 12 months, did you worry whether your food would run out before you got money to buy more?: Never true Do you have trouble paying for medicines?: No Do you have trouble getting transportation to medical appointments?: No Do you have trouble paying your heating and electricity bill?: No Do you have trouble taking care of your child, family member or friend?: No Do you have trouble with day-to-day activities such as bathing, preparing meals, shopping, managing finances, etc.?: No Are you currently unemployed and looking for a job?: No Are you interested in more education?: No Currently or been in a relationship where the following occur: no concerns reported THRIVE Score: 0 AUDIT C Alcohol Use Questionnaire (AUDIT-C) 1. How often do you have a drink containing alcohol?: Monthly or less Total Score: 1 RK-7 AMB Questionnaire RK-7 Date RK - 7 assessed: 06/05/23 Feeling nervous, anxious, or on edge: 0 = Not at all Not being able to stop or control worryin = Not at all Worrying too much about different things: 0 = Not at all Trouble relaxin = Not at all Being so restless that it is hard to sit still: 0 = Not at all Becoming easily annoyed or irritable: 0 = Not at all Feeling afraid as if something awful might happen: 0 = Not at all Total RK-7 score (0-4 normal; 5-9 mild; 10-14 moderate; 15-21 severe): 0 Source: Developed by Drs. Shekhar Yancey, Iesha Phoenix, Antonio Lux and colleagues, with an educational kelly from [employer]. Physical exam (Primary Care) Vital Signs: Last Vital Signs Pulse 71 06/05/23 07:59 BP 114/70 06/05/23 07:59 Pulse Ox 98 06/05/23 07:59 Oxygen Delivery Method Room Air 06/05/23 07:59 Care Plan Goal for BP management: Blood pressure is in range. Amlodipine has been stopped. Continue ARB. BMI result Body Mass Index 29.3 BMI Assessment/Plan discussion: High BMI High, discussed plan: lifestyle, weight reduction, dietary (Patient sees a sales agent food vending service.) and physical activity Tobacco/Smoking Status: Tobacco use Status Tobacco use date assessed 06/05/23 06/05/23 08:05 Patient Tobacco Use Status Never used Tobacco 06/05/23 08:05 e-Cigarette/Vaping Use Never Used 06/05/23 08:05 PHQ-9: PHQ-9 Score PHQ-9: Total score 0 06/05/23 08:05 Depression Screening Interpretation: Negative Thrive Assessment: Date of Thrive Assessment Date Thrive assessed 06/05/23 06/05/23 08:05 Currently or been in a relationship where the following occur: no concerns reported Advance Care Planning discussion: Exists, not on file Date of discussion: 06/05/23 Who was present: Patient Forms completed: Health Care Proxy Const General: cooperative and healthy appearing Nutritional Appearance: well nourished Orientation/consciousness: patient oriented x3 Limitations: no limitations HENMT Head: Yes normal to inspection Eyes General: appearance normal, both eyes and all related structures Neck Neck: Yes normal visual inspection Chest Chest palpation & inspection: normal palpation of entire chest wall Resp Effort & Inspection: normal respiratory effort Neuro General: patient oriented x3 Assessment and Plan Assessment & Plan (1) Major depression in partial remission: Code(s): F32.4 - Major depressive disorder, single episode, in partial remission Qualifiers: Major depression recurrence: recurrent Qualified Code(s): F33.41 - Major depressive disorder, recurrent, in partial remission Plan: Continue current medications. Patient has a therapist and a psychiatrist. She is also taking Adderall for attention deficit disorder. (2) HTN (hypertension): Code(s): I10 - Essential (primary) hypertension Qualifiers: Hypertension type: essential hypertension Qualified Code(s): I10 - Essential (primary) hypertension Plan: Blood pressure is stable. Patient would like to switch from 2 medications to 1. Amlodipine has been placed on temporary hold. Advised to monitor blood pressures. (3) Diabetes: Code(s): E11.9 - Type 2 diabetes mellitus without complications Qualifiers: Diabetes mellitus type: type 2 Diabetes mellitus terminal gauger insulin use: without fci use Diabetes mellitus complication status: without complication Qualified Code(s): E11.9 - Type 2 diabetes mellitus without complications Plan: A1c ordered. Blood work has been ordered. Will call with results. Medications: Discontinued amlodipine Discontinued Reason: Doctor's Order 5 mg PO DAILY 90 tabs 1RF Coding Level of Care Code Est Pt Level 4 (58658) Diagnoses Recurrent major depressive disorder, in partial remission F33.41 Major depression recurrence: recurrent Essential hypertension I10 Hypertension type: essential hypertension Type 2 diabetes mellitus without complication, without long-term current use of insulin E11.9 Diabetes mellitus type: type 2 Diabetes mellitus fci insulin use: without terminal gauger use Diabetes mellitus complication status: without complication Additional Codes Vital Signs *Quality* - Advance Care Planning discussion: Exists, not on file ([id number])
== END 2023-06-05 08:25 | disposition home or self-care (01) ==
PROVIDERS: PCP Internal Medicine; Visit Provider Internal Medicine
DX: F33.41 Major depressive disorder, recurrent, in partial remission (principal); I10 Essential (primary) hypertension; E11.9 Type 2 diabetes mellitus without complications; Z00.00 Encounter for general adult medical examination without abnormal findings
CPT/HCPCS: 1123F; 99214

== ENCOUNTER 2023-06-09 08:18 | Outpatient (REF) | payer OTHER, SELFPAY ==
[2023-06-09 09:02] LABS: Hematocrit 37.6 % (37.0-47.0); Hemoglobin 12.7 g/dl (12.0-16.0); Mean Corpuscular HGB Conc 33.8 g/dl (31.0-35.0); Mean Corpuscular Hemoglobin 31.1 pg (27.0-33.0); Mean Corpuscular Volume 92.2 fL (80.0-98.0); Mean Platelet Volume 9.7 fL (9.4-12.3); Platelet Count 236 X10*3/uL (160-400); Red Blood Count 4.08 X10*6/uL (4.20-5.50); Red Cell Distribution Width 12.7 % (11.0-16.0); White Blood Count 7.3 X10*3/uL (4.8-10.8)
[2023-06-09 09:09] LABS: Estimated Average Glucose 108 mg/dL; Hemoglobin A1c % 5.4 % (<6.0)
[2023-06-09 09:50] LABS: Alanine Aminotransferase 19 U/L (0-31); Albumin Level 4.2 g/dL (3.5-5.0); Alkaline Phosphatase 58 U/L (39-117); Anion Gap 15 (12-20); Aspartate Amino Transferase 22 U/L (5-31); Bilirubin Direct 0.2 mg/dL (0.0-0.5); Bilirubin Total 0.5 mg/dL (0.0-1.0); Blood Urea Nitrogen 12 mg/dL (9-16); Calcium 9.8 mg/dL (8.4-10.2); Carbon Dioxide 24 mmol/L (22-29); Chloride 106 mmol/L (96-108); Cholesterol 245 mg/dL (<200); Estimated Glomerular Filt Rate 46; Glucose Random 99 mg/dL (60-115); HDL Cholesterol 46 mg/dL (>40); LDL Cholesterol Calculated 167 mg/dL (<100); Potassium 3.7 mmol/L (3.3-5.1); Sodium 141 mmol/L (135-145); Total Protein 7.4 g/dL (6.5-8.0); Triglycerides 161 mg/dL (<150)
[2023-06-09 10:03] LABS: Appearance Urine Cloudy; Color Urine Yellow; Glucose Urine UA Negative (Negative); Leukocyte Esterase Urine Negative (Negative); Nitrite Urine Negative (Negative); PH 7.5 (5.0-9.0); Urine Blood Negative (Negative); Urine Ketones Negative (Negative); Urine Protein Negative (Neg-Trace)
[2023-06-09 10:06] LABS: Thyroid Stimulating Hormone 1.43 uIU/mL (0.32-4.0)
== END 2023-06-09 08:19 | disposition home or self-care (01) ==
LOC: HO.LAB 08:18
PROVIDERS: PCP Internal Medicine; Visit Provider Internal Medicine
DX: F32.4 Major depressive disorder, single episode, in partial remission (principal); E11.9 Type 2 diabetes mellitus without complications; E78.00 Pure hypercholesterolemia, unspecified
CPT/HCPCS: 36415; 80048; 80061; 80076; 81003; 83036; 84443; 85027

== ENCOUNTER 2023-06-17 08:33 | Outpatient (AMB) | payer OTHER, SELFPAY ==
[2023-06-17 08:38] VITALS: BMI 29.5
--- NOTE | 2023-06-17 08:38 | A.OFFVIS_ITS ---
Intake VS Expanded 06/17/23 08:38 Height 5 ft 5 in Weight 177 lb 0.499 oz BMI 29.5 Intake Visit Reasons: DM/LVM Allergies lisinopril [LISINOPRIL] Allergy (Severe, Verified 06/05/23 08:24) ? ANAPHYLAXIS Egg Derived [EGG DERIVED] Allergy (Unknown, Verified 06/05/23 08:24) ANAPHYLAXIS Egg White (Diagnostic) Allergy (Unknown, Uncoded 06/05/23 08:24) GI upset HPI Nutrition Presentation Details Pt reports following Intermittent fasting 3 times a week 11-7 pm, reports success 75 % of the time Pt reports also making diet modifications,choosing plant based foods, higher fiber foods. less fried food Pt reports keeping hydrated by having water with meals Keeping physically active :walks 3 x/wk 45 min to 1 hr most weeks Noted A1c at 5.4% on 05/2023 Most Recent Diabetes Results: Cholesterol 245 mg/dL (<200) H 06/09/23 HDL Cholesterol 46 mg/dL (>40) 06/09/23 Triglycerides 161 mg/dL (<150) H 06/09/23 Creatinine 1.17 mg/dL (0.5-1.4) 06/09/23 Blood Urea Nitrogen 12 mg/dL (9-16) 06/09/23 Sodium 141 mmol/L (135-145) 06/09/23 Potassium 3.7 mmol/L (3.3-5.1) 06/09/23 Chloride 106 mmol/L (96-108) 06/09/23 Carbon Dioxide 24 mmol/L (22-29) 06/09/23 Calcium 9.8 mg/dL (8.4-10.2) 06/09/23 AST 22 U/L (5-31) 06/09/23 ALT 19 U/L (0-31) 06/09/23 Total Protein 7.4 g/dL (6.5-8.0) 06/09/23 Albumin 4.2 g/dL (3.5-5.0) 06/09/23 [facility] Medical History Dysplasia of cervix, low grade (LILIANA 1) Transgender Hypercholesterolemia Major depression in partial remission Obesity (BMI 30.0-34.9) HTN (hypertension) Surgical History Hx of colonoscopy History of dental surgery History of mastectomy Glaucoma, left eye History of oral surgery History of hysterectomy Family History Father No problems noted. Mother Breast cancer Brother AIDS Maternal Aunt Colon cancer Other Mental health disorder Substance use disorder Social History Housing: House Alcohol intake: current Alcohol intake frequency: a few times a month Alcohol type: beer Patient Tobacco Use Status: Never used Tobacco e-Cigarette/Vaping Use: Never Used Second Hand Smoke Exposure: No service: No Current occupational status: employed Cognitive needs: No Hearing needs: No Vision needs: Yes (glasses) Female Reproductive History Menstrual Age of Menarche: 12 Assessment & Plan Assessment & Plan (1) Diabetes: Code(s): E11.9 - Type 2 diabetes mellitus without complications Qualifiers: Diabetes mellitus type: type 2 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: without nursing home use Diabetes mellitus complication status: without complication Qualified Code(s): E11.9 - Type 2 diabetes mellitus without complications Plan: wt: 84 kg (03/2023), 80 Kg (06/2023) Est kcal needs as per MSJ: 1900 (40% carb, 30% protein/fat) Est fluid needs as per 25-30 ml/d: 2520 Est prot per day as per 1 g/kg bw: 84 Recommend fiber intake : 8-10 g per day and gradually increase to 25-28 g per day for women and 35-38 g for men or as tolerated Recommend sodium intake per day : less than 2000 mg Educated patient on: ( R = reviewed V = verbalizes understanding N/R = needs review N/A = not applicable * Food sources of carbohydrate, adequate serving sizes and its role in various health conditions: R * Differences between complex carbohydrates a simple carbohydrates, role of fiber in diet: R , V * Differences between types of fats and role in diet (mono on saturated fat fatty acids, saturated fatty acids, trans fats): R, V * Food sources of sodium in salt and healthy modifications for heart health in kidney health: NR * Vitamins and minerals: R - reinforced calcium/vit D sources of foods and combination with exercise * Healthy plate method concept: R V * Physical activity: Benefits a precaution: R * Hypoglycemia protocol (rule of 15): NR * Dietary prevention of Hyperglycemia: R * Mindfful eating strategies : R Patient Instructions: Continue working on reducing on saturated fats (highly processed foods) aim at having a fruit in place of pastries, choose seeds/nuts unsalted Keep hydrated as you continue to work on high fiber foods, continue physically active as able Coding Level of Care Code Nutr Indiv Subseq (12251) Diagnoses Type 2 diabetes mellitus without complication, without long-term current use of insulin E11.9 Diabetes mellitus type: type 2 Diabetes mellitus nursing home insulin use: without nursing home use Diabetes mellitus complication status: without complication Time Spent (min) 20
== END 2023-06-17 09:10 | disposition home or self-care (01) ==
PROVIDERS: PCP Internal Medicine; Visit Provider Dietitian, Registered
DX: E11.9 Type 2 diabetes mellitus without complications (principal)

== ENCOUNTER → 2023-06-17 08:33 | Outpatient (BNVA) | payer OTHER, SELFPAY | PROVIDERS: PCP Internal Medicine; Visit Provider Dietitian, Registered | DX: E11.9 Type 2 diabetes mellitus without complications (principal); Z71.3 Dietary counseling and surveillance | CPT/HCPCS: 97803 ==

== ENCOUNTER 2023-09-10 08:20 | Outpatient (AMB) | payer OTHER, SELFPAY ==
[2023-09-10 08:35] VITALS: BMI 27.3
--- NOTE | 2023-09-10 08:35 | A.OFFVIS_ITS ---
Intake VS Expanded 09/10/23 08:35 Height 5 ft 5 in Weight 164 lb 3.91 oz BMI 27.3 Intake Visit Reasons: T2DM, elevated chol/CONFIRMED Allergies lisinopril [LISINOPRIL] Allergy (Severe, Verified 06/05/23 08:24) ? ANAPHYLAXIS Egg Derived [EGG DERIVED] Allergy (Unknown, Verified 06/05/23 08:24) ANAPHYLAXIS Egg White (Diagnostic) Allergy (Unknown, Uncoded 06/05/23 08:24) GI upset HPI Nutrition Presentation Details Pt presents for MNT f/u for T2DM. Pt has been working on diet modification and exercise routine. Pt reports following Intermittent fasting, 2 days fast and 5 d regular meals, modifying portion and choosing lower fat protein foods or vegetarian protein sources of foods. Pt reports feeling comfortable and getting used to it. Pt reports doing physical therapy once a month , and does exercises taught by PT 3 x week for 30 minutes , 1 pm : Meals rice/ 1/2 c beans, tofu 1/2 cup , greens /mushroom, carrots dark vikram 6 pm : same as dinner sometimes has 1 tbs of Metamucil added to 1/2 c juice and rest water snack: fruit, dark vikram, yogurts, crackers with peanut butter protein: poultry,tofu,fish, legumes, milk or alternatives starches: choosing starchy vegetables , oats , choosing whole grain foods vegetables:2-3 serving/daily (salads, [place] sprout, mushrooms , vary) fluids: water, almondmlk, juices diluted with water, smoothies low in sugar/carbs Most Recent Diabetes Results: Cholesterol 245 mg/dL (<200) H 06/09/23 HDL Cholesterol 46 mg/dL (>40) 06/09/23 Triglycerides 161 mg/dL (<150) H 06/09/23 Creatinine 1.17 mg/dL (0.5-1.4) 06/09/23 Blood Urea Nitrogen 12 mg/dL (9-16) 06/09/23 Sodium 141 mmol/L (135-145) 06/09/23 Potassium 3.7 mmol/L (3.3-5.1) 06/09/23 Chloride 106 mmol/L (96-108) 06/09/23 Carbon Dioxide 24 mmol/L (22-29) 06/09/23 Calcium 9.8 mg/dL (8.4-10.2) 06/09/23 AST 22 U/L (5-31) 06/09/23 ALT 19 U/L (0-31) 06/09/23 Total Protein 7.4 g/dL (6.5-8.0) 06/09/23 Albumin 4.2 g/dL (3.5-5.0) 06/09/23 PFSH Medical History Dysplasia of cervix, low grade (LILIANA 1) Transgender Hypercholesterolemia Major depression in partial remission Obesity (BMI 30.0-34.9) HTN (hypertension) Surgical History Hx of colonoscopy History of dental surgery History of mastectomy Glaucoma, left eye History of oral surgery History of hysterectomy Family History Father No problems noted. Mother Breast cancer Brother AIDS Maternal Aunt Colon cancer Other Mental health disorder Substance use disorder Social History Housing: House Alcohol intake: current Alcohol intake frequency: a few times a month Alcohol type: beer Patient Tobacco Use Status: Never used Tobacco e-Cigarette/Vaping Use: Never Used Second Hand Smoke Exposure: No service: No Current occupational status: employed Cognitive needs: No Hearing needs: No Vision needs: Yes (glasses) Female Reproductive History Menstrual Age of Menarche: 12 Assessment & Plan Assessment & Plan (1) Diabetes: Code(s): E11.9 - Type 2 diabetes mellitus without complications Qualifiers: Diabetes mellitus type: type 2 Diabetes mellitus half-way insulin use: without half-way use Diabetes mellitus complication status: without complication Qualified Code(s): E11.9 - Type 2 diabetes mellitus without complications Plan: wt: 84 kg (03/2023), 80 Kg (06/2023), 74 kg (09/2023) Est kcal needs as per MSJ: 1900 (40% carb, 30% protein/fat) Est fluid needs as per 25-30 ml/d: 2520 Est prot per day as per 1 g/kg bw: 84 Recommend fiber intake : 8-10 g per day and gradually increase to 25-28 g per day for women and 35-38 g for men or as tolerated Recommend sodium intake per day : less than 2000 mg Educated patient on: ( R = reviewed V = verbalizes understanding N/R = needs review N/A = not applicable * Food sources of carbohydrate, adequate serving sizes and its role in various health conditions: R * Differences between complex carbohydrates a simple carbohydrates, role of fiber in diet: R , V * Differences between types of fats and role in diet (mono on saturated fat fatty acids, saturated fatty acids, trans fats): R, V * Food sources of sodium in salt and healthy modifications for heart health in kidney health: R * Vitamins and minerals: R - reinforced calcium/vit D sources of foods and combination with exercise * Healthy plate method concept: R V * Physical activity: Benefits a precaution: R * Hypoglycemia protocol (rule of 15): NR * Dietary prevention of Hyperglycemia: R * Mindfful eating strategies : R Patient Instructions: Include foods source of calcium (rec 2000 mg/d of calcium) : fortified milk/laternatives, enriched milk/alternative, leafy greens, tofu,legumes, seed Continue physically active as able, goal 150 minutes per week, unless otherwise specified by Dr Misty Level of Care Code Nutr Indiv Subseq ([id number]) Diagnoses Type 2 diabetes mellitus without complication, without long-term current use of insulin E11.9 Diabetes mellitus type: type 2 Diabetes mellitus terminologist insulin use: without terminologist use Diabetes mellitus complication status: without complication Time Spent (min) 30
== END 2023-09-10 09:04 | disposition home or self-care (01) ==
PROVIDERS: PCP Internal Medicine; Visit Provider Dietitian, Registered
DX: E11.9 Type 2 diabetes mellitus without complications (principal)

== ENCOUNTER → 2023-09-10 08:20 | Outpatient (BNVA) | payer OTHER, SELFPAY | PROVIDERS: PCP Internal Medicine; Visit Provider Dietitian, Registered | DX: E11.9 Type 2 diabetes mellitus without complications (principal); Z71.3 Dietary counseling and surveillance | CPT/HCPCS: 97803 ==

== ENCOUNTER 2023-12-04 07:54 | Outpatient (AMB) | payer OTHER, SELFPAY ==
--- NOTE | 2023-12-04 08:01 | MHC.PC.OV ---
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 ANAPHYLAXIS Egg Derived [EGG DERIVED] Allergy (Unknown, Verified 12/04/23 08:05) ANAPHYLAXIS Egg White (Diagnostic) Allergy (Unknown, Uncoded 06/05/23 08:24) GI upset Tobacco use date assessed: 06/05/23 Fall risk assessment: No Falls in past year Last assessed Fall Risk: 12/04/23 Dental Screening Dental Screen Date: 12/04/23 Did you have a dental visit in the last 12 months?: Yes Did you have a dental problem in the last 6 months where you did not have access to dental care?: No Was dental information given to patient?: Patient has dentist HPI 6mth f/u HPI Details 68-year-old female presents to the office to discuss her chronic medical conditions. Patient is requesting a dermatology referral for her eczema in the abdomen. This is for insurance purposes. She is already seeing the various exceptionalities teacher. Patient now has a new therapist and psychiatrist to address her mental health conditions. She is compliant with the medications and continues to take the antidepressant and medications for ADHD. 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 Patient has seen the manager food beverage for her screening colonoscopy. It has been scheduled for April later this year. COUNT INCLUDES THE [facility] Medical History (Updated 12/04/23 @ 08:17 by Jhony Luna MD) Eczema Dysplasia of cervix, low grade (LILIANA 1) Transgender Hypercholesterolemia Major depression in partial remission Obesity (BMI 30.0-34.9) HTN (hypertension) Surgical History Hx of colonoscopy History of dental surgery History of mastectomy Glaucoma, left eye History of oral surgery History of hysterectomy Family History Father No problems noted. Mother Breast cancer Brother AIDS Maternal Aunt Colon cancer Other Mental health disorder Substance use disorder Social History Housing: House Alcohol intake: current Alcohol intake frequency: a few times a month Alcohol type: beer Patient Tobacco Use Status: Never used Tobacco e-Cigarette/Vaping Use: Never Used Second Hand Smoke Exposure: No service: No Current occupational status: employed Cognitive needs: No Hearing needs: No Vision needs: Yes (glasses) Female Reproductive History Menstrual Age of Menarche: 12 Questionnaire PHQ-9 Over the last 2 weeks, how often have you been bothered by any of the following problems? 1. Little interest or pleasure in doing things: not at all 2. Feeling down, depressed, or hopeless: not at all 3. Trouble falling or staying asleep, or sleeping too much: not at all 4. Feeling tired or having little energy: not at all 5. Poor appetite or overeating: not at all 6. Feeling bad about yourself - or that you are a failure or have let yourself or your family down: not at all 7. Trouble concentrating on things, such as reading the newspaper or watching television: not at all 8. Moving or speaking so slowly that other people could have noticed. Or the opposite - being so fidgety or restless that you have been moving around a lot more than usual: not at all 9. Thoughts that you would be better off or of hurting yourself in some way: not at all Total score: 0 Depression Screening Interpretation: Negative Depression Screening Done: Yes Source: Developed by Drs. Shekhar Yancey, Iesah Phoenix, Antonio Lux and colleagues, with an educational kelly from [employer]. Thrive Questionnaire Date Thrive assessed: 12/04/23 I am a: Patient What is your living situation today?: I have a steady place to live Within the past 12 months, did the food you bought not last and you didn't have the money to get more?: Never true Within the past 12 months, did you worry whether your food would run out before you got money to buy more?: Never true Do you have trouble paying for medicines?: No Do you have trouble getting transportation to medical appointments?: No Do you have trouble paying your heating and electricity bill?: No Do you have trouble taking care of your child, family member or friend?: No Do you have trouble with day-to-day activities such as bathing, preparing meals, shopping, managing finances, etc.?: No Are you currently unemployed and looking for a job?: No Are you interested in more education?: No Currently or been in a relationship where the following occur: No concerns reported THRIVE Score: 0 AUDIT C Alcohol Use Questionnaire (AUDIT-C) 1. How often do you have a drink containing alcohol?: Monthly or less 2. How many drinks containing alcohol do you have on a typical day when you are drinking?: 1 or 2 3. How often do you have six or more drinks on one occasion?: Never Total Score: 1 RK-7 AMB Questionnaire RK-7 Date RK - 7 assessed: 12/04/23 Feeling nervous, anxious, or on edge: 0 = Not at all Not being able to stop or control worryin = Not at all Worrying too much about different things: 0 = Not at all Trouble relaxin = Not at all Being so restless that it is hard to sit still: 0 = Not at all Becoming easily annoyed or irritable: 0 = Not at all Feeling afraid as if something awful might happen: 0 = Not at all Total RK-7 score (0-4 normal; 5-9 mild; 10-14 moderate; 15-21 severe): 0 Source: Developed by Drs. Shekhar Yancey, Iesha Phoenix, Antonio Lux and colleagues, with an educational kelly from [employer]. Physical exam (Primary Care) Vital Signs: Last Vital Signs Pulse 69 12/04/23 08:07 BP 130/74 12/04/23 08:07 Pulse Ox 99 12/04/23 08:07 Oxygen Delivery Method Room Air 12/04/23 08:07 Care Plan Goal for BP management: Blood pressure is in range. Continue current medications. BMI result Body Mass Index 27.6 Tobacco/Smoking Status: Tobacco use Status Tobacco use date assessed 06/05/23 12/04/23 08:03 Patient Tobacco Use Status Never used Tobacco 12/04/23 08:03 e-Cigarette/Vaping Use Never Used 12/04/23 08:03 PHQ-9: PHQ-9 Score PHQ-9: Total score 0 12/04/23 08:11 Depression Screening Interpretation: Negative Thrive Assessment: Date of Thrive Assessment Date Thrive assessed 12/04/23 12/04/23 08:03 Currently or been in a relationship where the following occur: No concerns reported Advance Care Planning discussion: Exists, not on file Date of discussion: 12/04/23 Forms completed: Health Care Proxy and MOLST Actual minutes spent: 5 Const General: cooperative and healthy appearing Nutritional Appearance: well nourished Orientation/consciousness: patient oriented x3 Limitations: no limitations HENMT Head: Yes normal to inspection Eyes General: appearance normal, both eyes and all related structures Neck Neck: Yes normal visual inspection Chest Chest palpation & inspection: normal palpation of entire chest wall Resp Effort & Inspection: normal respiratory effort Skin Other: Abdomen: Horizontal linear hypertrophic, hyperpigmented rash just adjacent to a surgical scar. Neuro General: patient oriented x3 Results AMB Hemoglobin A1c AMB Hemoglobin A1c 5.6 % Last Edit by CATALINO Keyes on 12/04/23 08:22 Assessment and Plan Assessment & Plan (1) Eczema: Code(s): L30.9 - Dermatitis, unspecified Plan: Patient sees a various exceptionalities teacher. A new referral has to be made for insurance purposes. Currently she is on no medications for the same. 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 Currently on no medications. Adequate control with diet and exercise. (3) Major depression in partial remission: Code(s): F32.4 - Major depressive disorder, single episode, in partial remission Qualifiers: Major depression recurrence: recurrent Qualified Code(s): F33.41 - Major depressive disorder, recurrent, in partial remission Plan: Patient's mental health is at baseline. Continue current medications. (4) HTN (hypertension): Code(s): I10 - Essential (primary) hypertension Qualifiers: Hypertension type: essential hypertension Qualified Code(s): I10 - Essential (primary) hypertension Plan: Blood pressure is in range. Losartan has been refilled. Orders: Orders AMB Hemoglobin A1c Today E11.9 - Type 2 diabetes mellitus without complications Basic Metabolic Panel Today E11.9 - Type 2 diabetes mellitus without complications, F33.41 - Major depressive disorder, recurrent, in partial remission, I10 - Essential (primary) hypertension Complete Blood Count no Diff Today E11.9 - Type 2 diabetes mellitus without complications, F33.41 - Major depressive disorder, recurrent, in partial remission, I10 - Essential (primary) hypertension Liver Panel Today E11.9 - Type 2 diabetes mellitus without complications, F33.41 - Major depressive disorder, recurrent, in partial remission, I10 - Essential (primary) hypertension UA and rflx microscopic Today E11.9 - Type 2 diabetes mellitus without complications, F33.41 - Major depressive disorder, recurrent, in partial remission, I10 - Essential (primary) hypertension Lipid Panel Today E11.9 - Type 2 diabetes mellitus without complications, F33.41 - Major depressive disorder, recurrent, in partial remission, I10 - Essential (primary) hypertension Thyroid Stimulating Hormone Today E11.9 - Type 2 diabetes mellitus without complications, F33.41 - Major depressive disorder, recurrent, in partial remission, I10 - Essential (primary) hypertension Referrals Dermatology Referral L30.9 - Dermatitis, unspecified Medications: Refilled losartan-hydrochlorothiazide 100-12.5 mg 1 tab PO DAILY 90 tabs 1RF Coding Level of Care Code Est Pt Level 4 (54511) Complex EM visit Add On G2211 Diagnoses Eczema L30.9 Type 2 diabetes mellitus without complication, without long-term current use of insulin E11.9 Diabetes mellitus complication status: without complication Diabetes mellitus fpc insulin use: without long line teamster use Diabetes mellitus type: type 2 Recurrent major depressive disorder, in partial remission F33.41 Major depression recurrence: recurrent Essential hypertension I10 Hypertension type: essential hypertension Additional Codes Vital Signs *Quality* - Advance Care Planning discussion: Exists, not on file ([id number])
[2023-12-04 08:07] VITALS: BP 130/74; PULSE 69; O2SAT 99; BMI 27.6
== END 2023-12-04 08:20 | disposition home or self-care (01) ==
PROVIDERS: PCP Internal Medicine; Visit Provider Internal Medicine
DX: L30.9 Dermatitis, unspecified (principal); E11.620 Type 2 diabetes mellitus with diabetic dermatitis; F33.41 Major depressive disorder, recurrent, in partial remission; I10 Essential (primary) hypertension; Z00.00 Encounter for general adult medical examination without abnormal findings
CPT/HCPCS: 1123F; 83036; 99214

== ENCOUNTER 2023-12-04 08:26 | Outpatient (REF) | payer OTHER, SELFPAY ==
[2023-12-04 08:54] LABS: Hematocrit 39.1 % (37.0-47.0); Hemoglobin 13.4 g/dl (12.0-16.0); Mean Corpuscular HGB Conc 34.3 g/dl (31.0-35.0); Mean Corpuscular Hemoglobin 31.7 pg (27.0-33.0); Mean Corpuscular Volume 92.4 fL (80.0-98.0); Mean Platelet Volume 9.1 fL (9.4-12.3); Platelet Count 233 X10*3/uL (160-400); Red Blood Count 4.23 X10*6/uL (4.20-5.50); Red Cell Distribution Width 12.8 % (11.0-16.0); White Blood Count 5.4 X10*3/uL (4.8-10.8)
[2023-12-04 09:28] LABS: Alanine Aminotransferase 12 U/L (0-31); Albumin Level 4.4 g/dL (3.5-5.0); Alkaline Phosphatase 59 U/L (39-117); Anion Gap 14 (12-20); Aspartate Amino Transferase 19 U/L (5-31); Bilirubin Direct < 0.2 mg/dL (0.0-0.5); Bilirubin Total 0.2 mg/dL (0.0-1.0); Blood Urea Nitrogen 24 mg/dL (9-16); Calcium 9.6 mg/dL (8.4-10.2); Carbon Dioxide 26 mmol/L (22-29); Chloride 107 mmol/L (96-108); Cholesterol 231 mg/dL (<200); Estimated Glomerular Filt Rate 48; Glucose Random 115 mg/dL (60-115); HDL Cholesterol 57 mg/dL (>40); LDL Cholesterol Calculated 158 mg/dL (<100); Potassium 4.3 mmol/L (3.3-5.1); Sodium 143 mmol/L (135-145); Total Protein 7.5 g/dL (6.5-8.0); Triglycerides 83 mg/dL (<150)
[2023-12-04 09:34] LABS: Appearance Urine Clear; Color Urine Yellow; Glucose Urine UA Negative (Negative); Leukocyte Esterase Urine Negative (Negative); Nitrite Urine Negative (Negative); PH 5.5 (5.0-9.0); Specific Gravity - Urine 1.025 (1.005-1.025); Urine Blood Negative (Negative); Urine Ketones Negative (Negative); Urine Protein Negative (Neg-Trace)
[2023-12-04 09:44] LABS: Thyroid Stimulating Hormone 1.18 uIU/mL (0.32-4.0)
== END 2023-12-04 08:27 | disposition home or self-care (01) ==
LOC: HO.LAB 08:26
PROVIDERS: PCP Internal Medicine; Visit Provider Internal Medicine
DX: E11.9 Type 2 diabetes mellitus without complications (principal); F33.41 Major depressive disorder, recurrent, in partial remission; I10 Essential (primary) hypertension
CPT/HCPCS: 36415; 80048; 80061; 80076; 81003; 84443; 85027

== ENCOUNTER 2023-12-11 08:28 | Outpatient (AMB) | payer OTHER, SELFPAY ==
[2023-12-11 08:33] VITALS: BMI 27.7
--- NOTE | 2023-12-11 08:33 | A.OFFVIS_ITS ---
VS Expanded 12/11/23 08:33 Height 5 ft 5 in Weight 166 lb 3.657 oz BMI 27.7 Intake Visit Reasons: T2DM, elevated chol-confirmed Allergies lisinopril [LISINOPRIL] Allergy (Severe, Verified 12/04/23 08:05) ? ANAPHYLAXIS Egg Derived [EGG DERIVED] Allergy (Unknown, Verified 12/04/23 08:05) ANAPHYLAXIS Egg White (Diagnostic) Allergy (Unknown, Uncoded 06/05/23 08:24) GI upset Nutrition Presentation Details: Pt presents for MNT for T2DM Diet controlled Pt's most recent A1c at 5.6% on 11/2023 Pt wants to continue working on dietary modifications related to hyperlipidemia physical activity: currently sedentary ETOH/SMoking:denies food frequency foods sources of omega 3: 1-2/month fiber rich foods: daily 2 serving/d fruits: 2/day BS Monitoring Most Recent Diabetes Results: Cholesterol 231 mg/dL (<200) H 12/04/23 HDL Cholesterol 57 mg/dL (>40) 12/04/23 Triglycerides 83 mg/dL (<150) 12/04/23 Creatinine 1.12 mg/dL (0.5-1.4) 12/04/23 Blood Urea Nitrogen 24 mg/dL (9-16) H 12/04/23 Sodium 143 mmol/L (135-145) 12/04/23 Potassium 4.3 mmol/L (3.3-5.1) 12/04/23 Chloride 107 mmol/L (96-108) 12/04/23 Carbon Dioxide 26 mmol/L (22-29) 12/04/23 Calcium 9.6 mg/dL (8.4-10.2) 12/04/23 AST 19 U/L (5-31) 12/04/23 ALT 12 U/L (0-31) 12/04/23 Total Protein 7.5 g/dL (6.5-8.0) 12/04/23 Albumin 4.4 g/dL (3.5-5.0) 12/04/23 [facility] Medical History (Updated 12/04/23 @ 08:17 by Jhony Luna MD) Eczema Dysplasia of cervix, low grade (LILIANA 1) Transgender Hypercholesterolemia Major depression in partial remission Obesity (BMI 30.0-34.9) HTN (hypertension) Surgical History Hx of colonoscopy History of dental surgery History of mastectomy Glaucoma, left eye History of oral surgery History of hysterectomy Family History Father No problems noted. Mother Breast cancer Brother AIDS Maternal Aunt Colon cancer Other Mental health disorder Substance use disorder Social History Housing: House Alcohol intake: current Alcohol intake frequency: a few times a month Alcohol type: beer Patient Tobacco Use Status: Never used Tobacco e-Cigarette/Vaping Use: Never Used Second Hand Smoke Exposure: No service: No Current occupational status: employed Cognitive needs: No Hearing needs: No Vision needs: Yes (glasses) Female Reproductive History Menstrual Age of Menarche: 12 Assessment & Plan Assessment & Plan (1) Diabetes: Code(s): E11.9 - Type 2 diabetes mellitus without complications Category: Medical Qualifiers: Diabetes mellitus type: type 2 Diabetes mellitus prison insulin use: without prison use Diabetes mellitus complication status: without complication Qualified Code(s): E11.9 - Type 2 diabetes mellitus without complications Plan: wt: 84 kg (03/2023), 80 Kg (06/2023), 74 kg (09/2023), 75.4 (11/2023) Est kcal needs as per MSJ: 1900 (40% carb, 30% protein/fat) Est fluid needs as per 25-30 ml/d: 2520 Est prot per day as per 1 g/kg bw: 84 Recommend fiber intake : 8-10 g per day and gradually increase to 25-28 g per day for women and 35-38 g for men or as tolerated Recommend sodium intake per day : less than 2000 mg Educated patient on: ( R = reviewed V = verbalizes understanding N/R = needs review N/A = not applicable * Food sources of carbohydrate, adequate serving sizes and its role in various health conditions: R * Differences between complex carbohydrates a simple carbohydrates, role of fiber in diet: R , V * Differences between types of fats and role in diet (mono on saturated fat fatty acids, saturated fatty acids, trans fats): R, V * Food sources of sodium in salt and healthy modifications for heart health in kidney health: R * Vitamins and minerals: R - reinforced calcium/vit D sources of foods and combination with exercise * Healthy plate method concept: R V * Physical activity: Benefits a precaution: R * Hypoglycemia protocol (rule of 15): NR * Dietary prevention of Hyperglycemia: R * Mindfful eating strategies : R Patient Instructions: Include fish at least twice a week Continue working on reducing food sources of saturated fats (pastries /highly processed foods) Coding Level of Care Code Nutr Indiv Subseq (49472) Diagnoses Type 2 diabetes mellitus without complication, without long-term current use of insulin E11.9 Diabetes mellitus type: type 2 Diabetes mellitus prison insulin use: without terminal press operator use Diabetes mellitus complication status: without complication Time Spent (min) 30
== END 2023-12-11 08:57 | disposition home or self-care (01) ==
PROVIDERS: PCP Internal Medicine; Visit Provider Dietitian, Registered
DX: E11.9 Type 2 diabetes mellitus without complications (principal)

== ENCOUNTER → 2023-12-11 08:28 | Outpatient (BNVA) | payer OTHER, SELFPAY | PROVIDERS: PCP Internal Medicine; Visit Provider Dietitian, Registered | DX: E11.9 Type 2 diabetes mellitus without complications (principal); Z71.3 Dietary counseling and surveillance | CPT/HCPCS: 97803 ==

== ENCOUNTER 2024-02-03 07:26 | Outpatient (AMB) | payer OTHER, SELFPAY ==
[2024-02-03 07:34] VITALS: BP 132/80; BMI 27.5
--- NOTE | 2024-02-03 07:34 | A.OFFVIS_ITS ---
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 ANAPHYLAXIS Egg Derived [EGG DERIVED] Allergy (Unknown, Verified 02/03/24 07:40) ANAPHYLAXIS Egg White (Diagnostic) Allergy (Unknown, Uncoded 02/03/24 07:40) GI upset Post menopausal: Yes HPI Comments Details: Presenting for annual exam. Complaining of urinary frequency urgency and urge incontinence over the last few months. Last Pap/HPV was in 01/31 was negative, this was preceded by LILIANA 1 in 12/30 Last Mammogram was BI-RADS 1 in 06/02 Last Colonoscopy was in 07/01, the recommendation was to repeat in 5 years Last DEXA scan was in 03/03 was in the low risk category PFSH Medical History Eczema Dysplasia of cervix, low grade (LILIANA 1) Transgender Hypercholesterolemia Major depression in partial remission Obesity (BMI 30.0-34.9) HTN (hypertension) Surgical History Hx of colonoscopy History of dental surgery History of mastectomy Glaucoma, left eye History of oral surgery History of hysterectomy Family History Father No problems noted. Mother Breast cancer Brother AIDS Maternal Aunt Colon cancer Other Mental health disorder Substance use disorder Social History Housing: House Alcohol intake: current Alcohol intake frequency: a few times a month Alcohol type: beer Patient Tobacco Use Status: Never used Tobacco e-Cigarette/Vaping Use: Never Used Second Hand Smoke Exposure: No service: No Current occupational status: employed Cognitive needs: No Hearing needs: No Vision needs: Yes (glasses) Female Reproductive History Menstrual Age of Menarche: 12 Menopause type: surgical Date of last pap smear: 01/10/22 Date of Mammogram: 06/06/21 Review of Systems Const All systems reviewed & are unremarkable except as noted in HPI and below Card Reports as per HPI and Reports no additional complaints Resp Reports as per HPI and Reports no additional complaints GI Reports as per HPI and Reports no additional complaints Reports as per HPI Physical Exam Vital Signs: Last Vital Signs BP 132/80 02/03/24 07:34 BMI result Body Mass Index 27.5 Const General: cooperative, healthy appearing and comfortable Chest Other: Status post bilateral mastectomy General: Yes bladder normal to palpation External Female Exam: No lesion Speculum Exam - Vagina: normal appearance of the vagina, normal vaginal discharge and not erythematous Speculum Exam - Cervix: normal appearance of the cervix Bimanual exam- vagina & uterus: bladder normal to palpation and uterus absent Bimanual Exam- Adnexa, other: Other (No masses detected) Assessment & Plan Assessment & Plan (1) Well woman exam: Comment: LILIANA 1 in 2020, followed by normal co testing in 2021 Code(s): Z01.419 - Encounter for gynecological examination (general) (routine) without abnormal findings Category: Medical Plan: Co testing not indicated since year. Counseled the patient about the recommended dietary allowance of 1200 mg of Calcium & 800 IU of vitamin D. Mammogram ordered. Will refer to GI for screening colonoscopy The patient was instructed to perform monthly self-breast exams and to schedule an appointment and an annual exam in a year; All questions answered and the patient verbalized understanding. (2) Urinary frequency: Code(s): R35.0 - Frequency of micturition Category: Medical Plan: Urine dip done in the office was negative. Will refer to Urology for further management. Instructed the patient to call our office back in case a referral appointment is not scheduled, missed or canceled so that we will assist on rescheduling another appointment, the patient verbalized understanding agreed with the plan. Orders: Orders MM tomosynthesis screening BI Today Z12.31 - Encounter for screening mammogram for malignant neoplasm of breast Referrals Urology Referral R35.0 - Frequency of micturition Coding Level of Care Code Est Pt Prev Care >65y(92846) Diagnoses Well woman exam Z01.419 Urinary frequency R35.0
== END 2024-02-03 07:56 | disposition home or self-care (01) ==
PROVIDERS: PCP Internal Medicine; Visit Provider Obstetrics & Gynecology
DX: Z01.419 Encounter for gynecological examination (general) (routine) without abnormal findings (principal); R35.0 Frequency of micturition
CPT/HCPCS: 99397

== ENCOUNTER → 2024-02-03 07:26 | Outpatient (BNVA) | payer OTHER, SELFPAY | PROVIDERS: PCP Internal Medicine; Visit Provider Obstetrics & Gynecology | DX: Z01.419 Encounter for gynecological examination (general) (routine) without abnormal findings (principal); R35.0 Frequency of micturition | CPT/HCPCS: 81002 ==

== ENCOUNTER 2024-03-30 08:04 | Outpatient (AMB) | payer OTHER, SELFPAY ==
--- NOTE | 2024-03-30 08:17 | A.OFFVIS_ITS ---
Intake Visit Reasons: urinary frequency Intake Note: New Patient presents for initial visit for urinary frequency Urology Medications: none Blood Thinner: none PVR: 10ml's Solar Energy Sales Specialist Required: No Accompanied by: Self / Same As Patient Allergies lisinopril [LISINOPRIL] Allergy (Severe, Verified 03/30/24 11:11) ? ANAPHYLAXIS Egg Derived [EGG DERIVED] Allergy (Unknown, Verified 03/30/24 11:11) ANAPHYLAXIS Egg White (Diagnostic) Allergy (Unknown, Uncoded 03/30/24 11:11) GI upset Medication List - Last Reconciled 03/30/24 by BRISSA Feliz-JASSI betamethasone dipropionate 0.05% 1 appl topical BID blood sugar diagnostic As directed cariprazine (Vraylar) 1.5 mg PO DAILY cholecalciferol (vitamin D3) 25 mcg PO DAILY epinephrine (EpiPen) 0.3 mg (0.3 mL) IM Q30M PRN lancets As directed lorazepam 1 mg PO BID losartan-hydrochlorothiazide 100-12.5 mg 1 tab PO DAILY magnesium oxide 400 mg PO DAILY methylphenidate HCl 20 mg PO BID methylphenidate HCl 10 mg PO BID triamcinolone acetonide 0.1% topical DAILY HPI Comments Details: Chris is a pleasant 68-year-old female patient of . She has a past medical history of eczema, dysplasia of cervix, low-grade, transgender, hypercholesteremia, depression, obesity, and hypertension. She presents to the office today as a new patient for ongoing lower urinary tract symptoms. In discussion with the patient today she reports having followed up with her PCP at which time she discussed ongoing issues with urinary urgency and frequency at which time urology referral was made for further assessment evaluation. She reports noting symptoms have been present for a few years. She reports noting urgency and frequency with episodes of mixed urine incontinence however these episodes are infrequent compared to urinary urgency and frequency. She otherwise denies nocturia, hematuria, dysuria, foul smelling urine, changes to urinary stream, flank pain, fever, and or chills. In office urinalysis results reviewed with the patient today. We discussed potential causes of lower urinary tract symptoms patient was experiencing as well as obtaining retroperitoneal ultrasound for further assessment evaluation. PVR 10 mL. She otherwise offers no other issues or concerns at this time. [facility] Medical History Eczema Dysplasia of cervix, low grade (LILIANA 1) Transgender Hypercholesterolemia Major depression in partial remission Obesity (BMI 30.0-34.9) HTN (hypertension) Surgical History Hx of colonoscopy History of dental surgery History of mastectomy Glaucoma, left eye History of oral surgery History of hysterectomy Family History Father No problems noted. Mother Breast cancer Brother AIDS Maternal Aunt Colon cancer Other Mental health disorder Substance use disorder Social History Housing: House Alcohol intake: current Alcohol intake frequency: a few times a month Alcohol type: beer Patient Tobacco Use Status: Never used Tobacco e-Cigarette/Vaping Use: Never Used Second Hand Smoke Exposure: No service: No Current occupational status: employed Cognitive needs: No Hearing needs: No Vision needs: Yes (glasses) Female Reproductive History Menstrual Age of Menarche: 12 Review of Systems Const All systems reviewed & are unremarkable except as noted in HPI and below Physical Exam Const General: cooperative, healthy appearing, comfortable, no acute distress, well developed, alert and awake Orientation/consciousness: patient oriented x3 Limitations: no limitations HEENT Head: Yes normal to inspection, Yes normocephalic and Yes atraumatic Ears: hearing grossly normal bilaterally Eyes General: appearance normal, both eyes and all related structures Neck Neck: Yes normal visual inspection and Yes trachea midline Chest Chest palpation & inspection: normal inspection of the chest Resp Effort & Inspection: normal respiratory effort and able to speak in complete sentences Cardio Rate: regular rate GI Inspection: Yes normal to inspection General: Yes no CVA tenderness Back/Spine/Pelvis Back: no CVA tenderness Skin General skin exam: no rashes or lesions noted Neuro General: patient oriented x3 Extrem General: Yes normal to inspection Psych Appearance: grossly normal and well kempt Mental Status: mental status grossly normal Speech and movement: Normal speech and movement present and Clear speech present Affect: normal affect Attitude: cooperative Thought process: Normal thought process present Thought content: Normal thought content present Insight: Fair insight present (Psych) Judgement: Fair judgement present (Psych) Office Procedures Post Void Residual Post Residual Void Post Void Residual (PVR): 10 [id number] Void Residual by ultrasound Results AMB Urinalysis, Automated UA Leukoctes 0 Yomaira/uL Last Edit by Kimmie Tadeo on 03/30/24 08:54 UA Nitrite Last Edit by Kimmie Tadeo on 03/30/24 08:54 UA Urobilinogen 0.2 mg/dL Last Edit by [employer] on 03/30/24 08:54 UA Protein 15 mg/dL Last Edit by Kimmie Tadeo on 03/30/24 08:54 UA pH 6.0 Last Edit by Kimmie Tadeo on 03/30/24 08:54 UA Blood 0 Stephane/uL Last Edit by Kimmie Tadeo on 03/30/24 08:54 UA Specific [place] 1.015 Last Edit by [employer] on 03/30/24 08:54 UA Ketone Negative Last Edit by [employer] on 03/30/24 08:54 UA Bilirubin 0 mg/dL Last Edit by Kimmie Tadeo on 03/30/24 08:54 UA Glucose 0 mg/dL Last Edit by Kimmie Tadeo on 03/30/24 08:54 Results Reviewed Results Reviewed: Laboratory Last Values Urine pH (Auto) 6.0 03/30/24 08:52 Specific [place] (Auto) 1.015 03/30/24 08:52 Urine Protein (Auto) 15 mg/dL 03/30/24 08:52 Glucose (UA)(Auto) 0 mg/dL 03/30/24 08:52 Urine Ketones (Auto) Negative 03/30/24 08:52 Urine Blood (Auto) 0 Stephane/uL 03/30/24 08:52 Urine Bilirubin (Auto) 0 mg/dL 03/30/24 08:52 Urine Urobilinogen (Auto) 0.2 mg/dL 03/30/24 08:52 Leukocyte Esterase (Auto) 0 Yomaira/uL 03/30/24 08:52 Assessment & Plan Assessment & Plan (1) Urinary frequency: Code(s): R35.0 - Frequency of micturition Category: Medical (2) Urinary urgency: Code(s): R39.15 - Urgency of urination Category: Medical Plan In office urinalysis results with the patient today; as noted above. PVR 10 mL. Will obtain retroperitoneal ultrasound for further assessment evaluation. Discussed bladder triggers/irritants. Discussed obtaining bladder diary. We discussed at length potential causes as well as further treatment options for lower urinary tract symptoms patient is experiencing. Follow-up in 1-3 months with imaging and PVR; or sooner with any issues, concerns, and or questions. Orders: Orders AMB Urinalysis Automated Today Z13.9 - Encounter for screening, unspecified US retroperitoneal comp Today R35.0 - Frequency of micturition, R39.15 - Urgency of urination AMB Post Void Residual by ultrasound Today R35.0 - Frequency of micturition Patient Instructions: The patient had an opportunity to ask questions regarding the treatment plan. All questions were answered. Physical exam, labs, and imaging were discussed and reviewed in detail. As well as risks, benefits, and discussion of treatment choices. No major barriers to understanding were identified. The patient expressed understanding and agreement with the above treatment plan. The patient was made aware they should contact our office by phone for worsening of their current condition, the appearance of new symptoms, or with any questions or concerns. Compliance is encouraged with any medications and follow up testing that is ordered. It is a privilege to be allowed the opportunity to participate in? your urological care.? Again, if you have any questions or concerns If you have any questions or concerns please do not hesitate to contact me. The office is [phone]. This note is constructed using voice recognition software. While every effort has been made to ensure accuracy hydro station supervisor errors may have been included. Yours sincerely, SANKET Feliz Coding Level of Care Code New Pt Level 3 (28738) Diagnoses Urinary frequency R35.0 Urinary urgency R39.15 CPT Codes Post Residual Void - PVR CPT Code: 19935-Swpr Void Residual by ultrasound ([id number])
== END 2024-03-30 08:55 | disposition home or self-care (01) ==
PROVIDERS: PCP Internal Medicine; Visit Provider Nurse Practitioner Family
DX: R35.0 Frequency of micturition (principal); R39.15 Urgency of urination; Z13.9 Encounter for screening, unspecified
CPT/HCPCS: 99203

== ENCOUNTER → 2024-03-30 08:04 | Outpatient (BNVA) | payer OTHER, SELFPAY | PROVIDERS: PCP Internal Medicine; Visit Provider Nurse Practitioner Family | DX: R35.0 Frequency of micturition (principal); R39.15 Urgency of urination | CPT/HCPCS: 51798; 81003 ==

== ENCOUNTER 2024-04-27 07:47 | Outpatient (AMB) | payer OTHER, SELFPAY ==
--- NOTE | 2024-04-27 07:59 | MHC.OFFVIS ---
Vital Signs 04/27/24 08:03 Height 5 ft 5 in Weight 173 lb BMI 28.8 BP 128/71 Blood Pressure Location Lt brachial Position Sitting Pulse 62 Intake Visit Reasons: Discuss Colonoscopy Intake Note: Patient follow up to discuss Colonoscopy. Patient cc: abdominal bloating on and off. Denies any other GI issue for today visit. Scleroscope Tester Required: No Accompanied by: Self / Same As Patient Allergies lisinopril [LISINOPRIL] Allergy (Severe, Verified 03/30/24 11:11) ? ANAPHYLAXIS Egg Derived [EGG DERIVED] Allergy (Unknown, Verified 03/30/24 11:11) ANAPHYLAXIS Egg White (Diagnostic) Allergy (Unknown, Uncoded 03/30/24 11:11) GI upset HPI HPI Discuss Colonoscopy: Details: LAST VISIT: Screen for colon cancer Constipation Plan Patient will start taking magnesium daily. Patient will increase fluids intake and activity to promote better bowel motility. Patient will return in April and we will discuss going for colonoscopy. Patient will call our office sooner if she will have any GI concerning symptoms. Patient and her can patcher are agreeable to plan of care and verbalizes understanding of instructions. She was given the opportunity to ask questions and all questions answered. ? Thank you for allowing me to participate in her care Medications New magnesium oxide 400 mg PO DAILY 90 caps 2RF K59.04 TODAY'S VISIT Patient is here today for follow-up and to discuss going for colonoscopy. Patient denies any issues with anesthesia in the past. No history of sleep apnea. Not on any anticoagulation medication. Patient's father was diagnosed with colorectal cancer in his 60s. Patient's last colonoscopy in 2019 showed no polyps. Patient denies any melena, hematochezia, unintentional weight loss or ribbon like stools. Patient denies any dyspepsia, dysphagia or odynophagia. Patient denies any cardiac or respiratory symptoms. [facility] Medical History Eczema Dysplasia of cervix, low grade (LILIANA 1) Transgender Hypercholesterolemia Major depression in partial remission Obesity (BMI 30.0-34.9) HTN (hypertension) Surgical History Hx of colonoscopy History of dental surgery History of mastectomy Glaucoma, left eye History of oral surgery History of hysterectomy Family History Father No problems noted. Mother Breast cancer Brother AIDS Maternal Aunt Colon cancer Other Mental health disorder Substance use disorder Social History Housing: House Alcohol intake: current Alcohol intake frequency: a few times a month Alcohol type: beer Patient Tobacco Use Status: Never used Tobacco e-Cigarette/Vaping Use: Never Used Second Hand Smoke Exposure: No service: No Current occupational status: employed Cognitive needs: No Hearing needs: No Vision needs: Yes (glasses) Female Reproductive History Menstrual Age of Menarche: 12 Review of Systems Const Denies weight gain and Denies weight loss ENT Reports no additional complaints, Denies dysphagia and Denies odynophagia Card Reports no additional complaints Resp Reports no additional complaints GI Denies abdominal pain, Denies belching, Denies melena, Denies bloating, Denies change in bowel habits, Denies dysphagia, Denies excessive flatus, Denies dyspepsia, Denies heartburn, Denies diarrhea, Denies loose stools, Denies nausea, Denies odynophagia and Denies vomiting Musc Reports no additional complaints Neuro Reports no additional complaints Psych Reports no additional complaints Endo Reports no additional complaints Physical Exam Vital Signs: Last Vital Signs Pulse 62 04/27/24 08:03 BP 128/71 04/27/24 08:03 BMI result Body Mass Index 28.8 Const General: healthy appearing, no acute distress and well developed Nutritional Appearance: obese Orientation/consciousness: patient oriented x3 Resp Effort & Inspection: normal respiratory effort, able to speak in complete sentences, no tracheal deviation and symmetric chest movement Auscultation: clear to auscultation bilaterally Cardio Rate: regular rate GI Inspection: Yes normal to inspection, No distended and Yes obesity Palpation (GI): Soft to palpation, not firm, nontender and No hepatosplenomegaly present Auscultation: normal bowel sounds General: Yes no CVA tenderness Back/Spine/Pelvis Back: no CVA tenderness Skin General skin exam: elasticity normal, turgor normal and dry skin Neuro General: patient oriented x3 Psych Appearance: grossly normal Mental Status: mental status grossly normal Assessment & Plan Assessment & Plan (1) Screen for colon cancer: Code(s): Z12.11 - Encounter for screening for malignant neoplasm of colon Plan What to expect before during and after procedure discussed with patient. Stressed the importance of clear liquid diet and good bowel prep before procedure. Patient denies any issues with anesthesia in the past. No history of sleep apnea. Not on any anticoagulation medication. Patient denies melena, hematochezia, unintentional weight loss or ribbon like stools. Patient will return after the procedure, sooner on as needed basis. She is agreeable to plan of care and verbalizes understanding of instructions. She was given the opportunity to ask questions and all questions answered Thank you for allowing me to participate in her care Medications: New bisacodyl (Dulcolax (bisacodyl)) take 4 tabs at noon the day before your colonoscopy 20 mg (4 x 5 mg) PO ONCE 1 day 4 tabs 0RF Z12.11 - Encounter for screening for malignant neoplasm of colon polyethylene glycol 3350 (Miralax) As directed by gastroenterology department at [facility] 238 grams PO ONCE 238 grams 0RF Z12.11 - Encounter for screening for malignant neoplasm of colon Coding Level of Care Code New Pt Level 3 (82039) Diagnoses Screen for colon cancer Z12.11 Time Spent (min) 40 Comment 30 minutes spent with patient and additional 10 minutes spent reviewing her records
[2024-04-27 08:03] VITALS: BP 128/71; PULSE 62; BMI 28.8
== END 2024-04-28 08:25 | disposition home or self-care (01) ==
PROVIDERS: PCP Internal Medicine; Visit Provider Nurse Practitioner Family
DX: Z01.818 Encounter for other preprocedural examination (principal); Z12.11 Encounter for screening for malignant neoplasm of colon
CPT/HCPCS: 99212

== ENCOUNTER → 2024-04-27 07:47 | Outpatient (BNVA) | payer OTHER, SELFPAY | PROVIDERS: PCP Internal Medicine; Visit Provider Nurse Practitioner Family ==

== ENCOUNTER 2024-05-24 09:55 | Outpatient (REF) | payer OTHER, SELFPAY ==
--- NOTE | ~2024-05-24 | US_ITS ---
CLINICAL HISTORY: R39.15 - Urgency of urination US retroperitoneum with color Doppler Comparison: None Findings: Right kidney normal size and echotexture, 9.4 cm length. Borderline mild hydronephrosis. Normal color flow. No nephrolithiasis. No renal masses. Left kidney normal size and echotexture, 9.0 cm in length. No hydronephrosis. Normal color flow. No nephrolithiasis. No renal masses. Urinary bladder is unremarkable. Prevoid volume four hundred forty-nine mL. Postvoid volume 8.3mL Ureteral jets are visualized bilaterally Impression: 1. Borderline mild hydronephrosis on the right. Bilateral ureteral jets were documented excludes complete obstructive uropathy. 2. No elevated postvoid residual This document has been electronically signed by: Angel Gamboa MD on 05/25/2024 12:50:42
== END 2024-05-24 09:56 | disposition home or self-care (01) ==
LOC: HO.US 09:55
PROVIDERS: PCP Internal Medicine; Visit Provider Nurse Practitioner Family
DX: R39.15 Urgency of urination (principal); R35.0 Frequency of micturition
CPT/HCPCS: 76770

== ENCOUNTER → 2024-05-24 09:56 | Outpatient (BNV) | payer OTHER, SELFPAY | PROVIDERS: PCP Internal Medicine; Visit Provider Radiology Diagnostic Radiology | DX: R39.15 Urgency of urination (principal) | CPT/HCPCS: 76770 ==

== ENCOUNTER 2024-06-01 07:36 | Outpatient (AMB) | payer OTHER, SELFPAY ==
--- NOTE | 2024-06-01 08:00 | A.OFFVIS_ITS ---
Intake Visit Reasons: 2m/US(set) Intake Note: Patient presents today for follow up on: urinary frequency and ultrasound results * Imaging Completed: 05/25/24 Urology Medications: none Blood Thinner: none PVR: 10ml's Certified Hyperbaric Technician Required: No Accompanied by: Self / Same As Patient Allergies lisinopril [LISINOPRIL] Allergy (Severe, Verified 06/01/24 11:16) ? ANAPHYLAXIS Egg Derived [EGG DERIVED] Allergy (Unknown, Verified 06/01/24 11:16) ANAPHYLAXIS Egg White (Diagnostic) Allergy (Unknown, Uncoded 06/01/24 11:16) GI upset Medication List - Last Reconciled 06/01/24 by BRISSA Feliz- betamethasone dipropionate 0.05% 1 appl topical BID bisacodyl (Dulcolax (bisacodyl)) 20 mg (4 x 5 mg) PO ONCE 1 day blood sugar diagnostic As directed cariprazine (Vraylar) 1.5 mg PO DAILY cholecalciferol (vitamin D3) 25 mcg PO DAILY epinephrine (EpiPen) 0.3 mg (0.3 mL) IM Q30M PRN lancets As directed lorazepam 1 mg PO BID losartan-hydrochlorothiazide 100-12.5 mg 1 tab PO DAILY magnesium oxide 400 mg PO DAILY methylphenidate HCl 20 mg PO BID methylphenidate HCl 10 mg PO BID polyethylene glycol 3350 (Miralax) 238 grams PO ONCE triamcinolone acetonide 0.1% topical DAILY HPI Comments Details: Chris is a pleasant 68-year-old female patient of . She has a past medical history of eczema, dysplasia of cervix, low-grade, transgender, hypercholesteremia, depression, obesity, and hypertension. She presents to the office today for follow-up. Of note, patient was seen approximately 2 months ago as a new patient for ongoing lower urinary tract symptoms at which time a retroperitoneal ultrasound was ordered for further assessment evaluation. These results were reviewed with the patient today. Bilateral kidneys are normal in size and echotexture. Borderline mild right-sided hydronephrosis. Bilateral kidneys with no calculi or renal masses. The urinary bladder is unremarkable. Pre void bladder volume is approximately 450ml postvoid bladder volume is proximally 10 mL. Ureteral jets are visualized bilaterally. In office urinalysis results reviewed with the patient today. PVR 10 mL. She continues to report episodes of urinary urgency and frequency with episodes of mixed urine incontinence however these episodes are infrequent compared to urinary urgency and frequency. She otherwise denies nocturia, hematuria, dysuria, foul smelling urine, changes to urinary stream, flank pain, fever, and or chills. We discussed potential causes of lower urinary tract symptoms patient is experiencing as well as further treatment options and risks and benefits of these treatment options. She would like to continue with surveillance monitoring at this time. Information provided regarding pelvic floor exercises. She otherwise offers no other issues or concerns at this time. BUN: 11/29 14, 08/31 19, 08/01 22, 01/01 22, 06/04 12, 12/03 23 Creatinine: 11/29 1.06, 08/31 0.98, 08/01 1.17, 01/01 1.16, 06/04 1.17, 12/02 1.12 [facility] Medical History Eczema Dysplasia of cervix, low grade (LILIANA 1) Transgender Hypercholesterolemia Major depression in partial remission Obesity (BMI 30.0-34.9) HTN (hypertension) Surgical History Hx of colonoscopy History of dental surgery History of mastectomy Glaucoma, left eye History of oral surgery History of hysterectomy Family History Father No problems noted. Mother Breast cancer Brother AIDS Maternal Aunt Colon cancer Other Mental health disorder Substance use disorder Social History Housing: House Alcohol intake: current Alcohol intake frequency: a few times a month Alcohol type: beer Patient Tobacco Use Status: Never used Tobacco e-Cigarette/Vaping Use: Never Used Second Hand Smoke Exposure: No service: No Current occupational status: employed Cognitive needs: No Hearing needs: No Vision needs: Yes (glasses) Female Reproductive History Menstrual Age of Menarche: 12 Review of Systems Const All systems reviewed & are unremarkable except as noted in HPI and below Physical Exam Const General: cooperative, healthy appearing, comfortable, no acute distress, well developed, alert and awake Orientation/consciousness: patient oriented x3 Limitations: no limitations HEENT Head: Yes normal to inspection, Yes normocephalic and Yes atraumatic Ears: hearing grossly normal bilaterally Eyes General: appearance normal, both eyes and all related structures Neck Neck: Yes normal visual inspection and Yes trachea midline Chest Chest palpation & inspection: normal inspection of the chest Resp Effort & Inspection: normal respiratory effort and able to speak in complete sen tences Cardio Rate: regular rate GI Inspection: Yes normal to inspection General: Yes no CVA tenderness Back/Spine/Pelvis Back: no CVA tenderness Skin General skin exam: no rashes or lesions noted Neuro General: patient oriented x3 Extrem General: Yes normal to inspection Psych Appearance: grossly normal and well kempt Mental Status: mental status grossly normal Speech and movement: Normal speech and movement present and Clear speech present Affect: normal affect Attitude: cooperative Thought process: Normal thought process present Thought content: Normal thought content present Insight: Fair insight present (Psych) Judgement: Fair judgement present (Psych) Office Procedures Post Void Residual Post Residual Void Post Void Residual (PVR): 10 58735-Kqeo Void Residual by ultrasound Results AMB Urinalysis, Automated UA Leukoctes 0 Yomaira/uL Last Edit by MaulSoup on 06/01/24 08:51 UA Nitrite Last Edit by MaulSoup on 06/01/24 08:51 UA Urobilinogen 0.2 mg/dL Last Edit by MaulSoup on 06/01/24 08:51 UA Protein 15 mg/dL Last Edit by MaulSoup on 06/01/24 08:51 UA pH 7.0 Last Edit by MaulSoup on 06/01/24 08:51 UA Blood 0 Stephane/uL Last Edit by MaulSoup on 06/01/24 08:51 UA Specific [place] 1.010 Last Edit by MaulSoup on 06/01/24 08:51 UA Ketone Negative Last Edit by MaulSoup on 06/01/24 08:51 UA Bilirubin 0 mg/dL Last Edit by Kimmie Tadeo on 06/01/24 08:51 UA Glucose 0 mg/dL Last Edit by Kimmie Tadeo on 06/01/24 08:51 Results Reviewed Results Reviewed: Laboratory Last Values Urine pH (Auto) 7.0 06/01/24 08:48 Specific [place] (Auto) 1.010 06/01/24 08:48 Urine Protein (Auto) 15 mg/dL 06/01/24 08:48 Glucose (UA)(Auto) 0 mg/dL 06/01/24 08:48 Urine Ketones (Auto) Negative 06/01/24 08:48 Urine Blood (Auto) 0 Stephane/uL 06/01/24 08:48 Urine Bilirubin (Auto) 0 mg/dL 06/01/24 08:48 Urine Urobilinogen (Auto) 0.2 mg/dL 06/01/24 08:48 Leukocyte Esterase (Auto) 0 Yomaira/uL 06/01/24 08:48 Date of Service: 05/24/24 US retroperitoneum with color Doppler Comparison: None Findings: Right kidney normal size and echotexture, 9.4 cm length. Borderline mild hydronephrosis. Normal color flow. No nephrolithiasis. No renal masses. Left kidney normal size and echotexture, 9.0 cm in length. No hydronephrosis. Normal color flow. No nephrolithiasis. No renal masses. Urinary bladder is unremarkable. Prevoid volume four hundred forty-nine mL. Postvoid volume 8.3mL Ureteral jets are visualized bilaterally Impression: 1. Borderline mild hydronephrosis on the right. Bilateral ureteral jets were documented excludes complete obstructive uropathy. 2. No elevated postvoid residual Assessment & Plan Assessment & Plan (1) Urinary frequency: Code(s): R35.0 - Frequency of micturition Category: Medical (2) Urinary urgency: Code(s): R39.15 - Urgency of urination Category: Medical (3) Mixed incontinence urge and stress: Code(s): N39.46 - Mixed incontinence Category: Medical Plan In office urinalysis results reviewed with the patient today; as noted above. PVR 10 mL. Recent retroperitoneal ultrasound results reviewed with the patient today; as noted above. We discussed at length potential causes of lower urinary tract symptoms patient is experiencing as well as further treatment options and risks and benefits of these treatment options. We discussed possible near future in office cystoscopy and or urodynamics for further assessment evaluation. Information provided regarding pelvic floor exercises. Will continue with surveillance monitoring at this time. Will obtain renal ultrasound, BUN, and creatinine in 1 year. Follow-up in 1 year with imaging, labs, and PVR; or sooner with any issues, concerns, and or questions. Orders: Orders Blood Urea Nitrogen Today R35.0 - Frequency of micturition, R39.15 - Urgency of urination Creatinine Today R35.0 - Frequency of micturition, R39.15 - Urgency of urination US renal BI 1 Year N20.0 - Calculus of kidney AMB Post Void Residual by ultrasound Today N39.41 - Urge incontinence, R39.15 - Urgency of urination AMB Urinalysis Automated Today Z13.9 - Encounter for screening, unspecified Patient Instructions: The patient had an opportunity to ask questions regarding the treatment plan. All questions were answered. Physical exam, labs, and imaging were discussed and reviewed in detail. As well as risks, benefits, and discussion of treatment choices. No major barriers to understanding were identified. The patient expressed understanding and agreement with the above treatment plan. The patient was made aware they should contact our office by phone for worsening of their current condition, the appearance of new symptoms, or with any questions or concerns. Compliance is encouraged with any medications and follow up testing that is ordered. It is a privilege to be allowed the opportunity to participate in? your urological care.? Again, if you have any questions or concerns If you have any questions or concerns please do not hesitate to contact me. The office is [phone]. This note is constructed using voice recognition software. While every effort has been made to ensure accuracy body joiner errors may have been included. Yours sincerely, SANKET Feliz Coding Level of Care Code Est Pt Level 3 (56658) Diagnoses Urinary frequency R35.0 Urinary urgency R39.15 Mixed incontinence urge and stress N39.46 CPT Codes Post Residual Void - PVR CPT Code: 16547-Vdio Void Residual by ultrasound ([id number])
== END 2024-06-01 08:31 | disposition home or self-care (01) ==
PROVIDERS: PCP Internal Medicine; Visit Provider Nurse Practitioner Family
DX: R35.0 Frequency of micturition (principal); N39.46 Mixed incontinence; Z13.9 Encounter for screening, unspecified
CPT/HCPCS: 99213

== ENCOUNTER → 2024-06-01 07:36 | Outpatient (BNVA) | payer OTHER, SELFPAY | PROVIDERS: PCP Internal Medicine; Visit Provider Nurse Practitioner Family | DX: R35.0 Frequency of micturition (principal); N39.46 Mixed incontinence | CPT/HCPCS: 51798; 81003 ==

== ENCOUNTER 2024-06-24 07:46 | Outpatient (AMB) | payer OTHER, SELFPAY ==
--- OUTSIDE RECORDS SUMMARY | 2024-06-24 07:48 | XMS_ITS | Encounter Summary ---
Author Organization [facility] Address [address] [place] [address] Care Team Providers Care Aviation Engineer Name Role Phone Zuri Gomez MD Primary Care Provider Unavailabl e Encounter Details Date Type Department Care Team (Late st Contact Info) Description 06/15/2020 Orders Only [place] [phone] Frances Headley DDS [address] [place] [address] [place] [address] Social History Tobacco Use Types Packs/Day Years Used Date Smoking Tobacco: Never Assessed Comments Unknown Sex and Gender Information Value Date Recorded Sex Assigned at Not on file Legal Sex Female 4:21 AM EST Gender Identity Not on file Sexual Orientation Not on file documented as of this encounter Plan of Treatment Not on file documented as of this encounter Visit Diagnoses Not on filedocumented in this encounter Care Teams Aviation Engineer Relationship Specialty Start Date End Date Zuri Gomez MD [address] [place] [id number] PCP - General Internal Medicine 03/15/20 documented as of this encounter
--- OUTSIDE RECORDS SUMMARY | 2024-06-24 07:48 | XMS_ITS | Clinical Summary ---
Author Organization [facility] Address [address] [place] [address] Care Team Providers Care Hand Splitter Name Role Phone Pcp, Zuri MARCOS Primary Care Provider Unavailabl e Social History Tobacco Use Types Packs/Day Years Used Date Smoking Tobacco: Never Assessed Comments Unknown Sex and Gender Information Value Date Recorded Sex Assigned at Not on file Legal Sex Female 4:21 AM EST Gender Identity Not on file Sexual Orientation Not on file Plan of Treatment Health Maintenance Due Date Last Done Comments Bone Density Screening 1955 Breast Cancer Screening 1955 CT Colonography 1955 Colonoscopy 1955 Colorectal Cancer Screening 1955 FIT-DNA (Cologuard) 1955 FIT 1955 FOBT 1955 Flex Sigmoidoscopy - 5y 1955 HIV Screening 1955 DTaP,Tdap,and Td Vaccines (1 - Tdap) 1973 Hepatitis C Screening 1973 Zoster Vaccines (1 of 2) 2005 Pneumococcal Vaccine, 65+ Ye ars (1 of 1 - PCV) 2020 COVID-19 Vaccine ( - 2023-2 5 season) 2024 Influenza Vaccine (#1) 2024 HPV Vaccines Aged Out No longer eligi ble based on patient's age to complete this topic Hepatitis A Vaccines Aged Out No long er eligible based on patient's age to complete this topic Meningococcal Vaccine Aged Out No siddharth elaine eligible based on patient's age to complete this topic Insurance COMMERCIAL GENERIC MEDICARE PART A ONLY Care Teams Hand Splitter Relationship Specialty Start Date End Date Zuri Gomez MD [address] [place], [place] [phone] PCP - General Internal Medicine 03/15/20
--- NOTE | 2024-06-24 08:09 | A.OFFPC_ITS ---
Vital Signs 06/24/24 08:11 Height 5 ft 5 in Weight 177 lb BMI 29.5 BP 126/80 Blood Pressure Location Lt brachial Position Sitting Pulse 70 Pulse Source Pulse Oximeter Pulse Oximetry (%) 99 Oxygen Delivery Method Room Air Intake Visit Reasons: 6 Month follow Up Intake Note: Patient here for a 6 month follow up Quality Assurance Monitor Body Required: No Accompanied by: Self / Same As Patient Allergies lisinopril [LISINOPRIL] Allergy (Severe, Verified 06/24/24 08:33) ? ANAPHYLAXIS Egg Derived [EGG DERIVED] Allergy (Unknown, Verified 06/24/24 08:33) ANAPHYLAXIS Egg White (Diagnostic) Allergy (Unknown, Uncoded 06/24/24 08:33) GI upset Medication List - Last Reconciled 06/24/24 by Jhony Luna MD betamethasone dipropionate 0.05% 1 appl topical BID bisacodyl (Dulcolax (bisacodyl)) 20 mg (4 x 5 mg) PO ONCE 1 day blood sugar diagnostic As directed cariprazine (Vraylar) 1.5 mg PO DAILY cholecalciferol (vitamin D3) 25 mcg PO DAILY epinephrine (EpiPen) 0.3 mg (0.3 mL) IM Q30M PRN lancets As directed lorazepam 1 mg PO BID losartan-hydrochlorothiazide 100-12.5 mg 1 tab PO DAILY magnesium oxide 400 mg PO DAILY methylphenidate HCl 20 mg PO BID methylphenidate HCl 10 mg PO BID polyethylene glycol 3350 (Miralax) 238 grams PO ONCE triamcinolone acetonide 0.1% topical DAILY Tobacco use date assessed: 06/24/24 Fall risk assessment: No Falls in past year Last assessed Fall Risk: 06/24/24 Dental Screening Dental Screen Date: 06/24/24 Did you have a dental visit in the last 12 months?: Yes Did you have a dental problem in the last 6 months where you did not have access to dental care?: No Was dental information given to patient?: Patient has dentist [facility] Medical History Eczema Dysplasia of cervix, low grade (LILIANA 1) Transgender Hypercholesterolemia Major depression in partial remission Obesity (BMI 30.0-34.9) HTN (hypertension) Surgical History Hx of colonoscopy History of dental surgery History of mastectomy Glaucoma, left eye History of oral surgery History of hysterectomy Family History Father No problems noted. Mother Breast cancer Brother AIDS Maternal Aunt Colon cancer Other Mental health disorder Substance use disorder Social History Housing: House Alcohol intake: current Alcohol intake frequency: a few times a month Alcohol type: beer Patient Tobacco Use Status: Never used Tobacco e-Cigarette/Vaping Use: Never Used Second Hand Smoke Exposure: No service: No Current occupational status: employed Cognitive needs: No Hearing needs: No Vision needs: Yes (glasses) Female Reproductive History Menstrual Age of Menarche: 12 Questionnaire PHQ-9 Over the last 2 weeks, how often have you been bothered by any of the following problems? 1. Little interest or pleasure in doing things: not at all 2. Feeling down, depressed, or hopeless: not at all 3. Trouble falling or staying asleep, or sleeping too much: not at all 4. Feeling tired or having little energy: not at all 5. Poor appetite or overeating: not at all 6. Feeling bad about yourself - or that you are a failure or have let yourself or your family down: not at all 7. Trouble concentrating on things, such as reading the newspaper or watching television: not at all 8. Moving or speaking so slowly that other people could have noticed. Or the opposite - being so fidgety or restless that you have been moving around a lot more than usual: not at all 9. Thoughts that you would be better off or of hurting yourself in some way: not at all Total score: 0 Source: Developed by Drs. Shekhar Yancey, Iesha Phoenix, Antonio Lux and colleagues, with an educational kelly from [employer]. Thrive Questionnaire Date Thrive assessed: 06/24/24 I am a: Patient What is your living situation today?: I have a steady place to live Within the past 12 months, did the food you bought not last and you didn't have the money to get more?: Never true Within the past 12 months, did you worry whether your food would run out before you got money to buy more?: Never true Do you have trouble paying for medicines?: No Do you have trouble getting transportation to medical appointments?: No Do you have trouble paying your heating and electricity bill?: No Do you have trouble taking care of your child, family member or friend?: No Do you have trouble with day-to-day activities such as bathing, preparing meals, shopping, managing finances, etc.?: No Are you currently unemployed and looking for a job?: No Are you interested in more education?: No Please select the resources that you would like help with: None Currently or been in a relationship where the following occur: No concerns reported THRIVE Score: 0 AUDIT C Alcohol Use Questionnaire (AUDIT-C) 1. How often do you have a drink containing alcohol?: Monthly or less 2. How many drinks containing alcohol do you have on a typical day when you are drinking?: 1 or 2 3. How often do you have six or more drinks on one occasion?: Never Total Score: 1 RK-7 AMB Questionnaire RK-7 Date RK - 7 assessed: 06/24/24 Feeling nervous, anxious, or on edge: 0 = Not at all Not being able to stop or control worryin = Not at all Worrying too much about different things: 0 = Not at all Trouble relaxin = Not at all Being so restless that it is hard to sit still: 0 = Not at all Becoming easily annoyed or irritable: 0 = Not at all Feeling afraid as if something awful might happen: 0 = Not at all Total RK-7 score (0-4 normal; 5-9 mild; 10-14 moderate; 15-21 severe): 0 Source: Developed by Drs. Shekhar Yancey, Iesha Phoenix, Antonio Lux and colleagues, with an educational kelly from [employer]. Physical exam (Primary Care) Vital Signs: Last Vital Signs Pulse 70 06/24/24 08:11 BP 126/80 06/24/24 08:11 Pulse Ox 99 06/24/24 08:11 Oxygen Delivery Method Room Air 06/24/24 08:11 BMI result Body Mass Index 29.5 Tobacco/Smoking Status: Tobacco use Status Tobacco use date assessed 06/24/24 06/24/24 08:15 Patient Tobacco Use Status Never used Tobacco 06/24/24 08:15 e-Cigarette/Vaping Use Never Used 06/24/24 08:15 PHQ-9: PHQ-9 Score PHQ-9: Total score 0 06/24/24 08:15 Thrive Assessment: Date of Thrive Assessment Date Thrive assessed 06/24/24 06/24/24 08:15 Currently or been in a relationship where the following occur: No concerns reported Coding Level of Care Code Est Pt Level 4 (58296) Complex EM visit Add On G2211 Diagnoses Recurrent major depressive disorder, in partial remission F33.41 Major depression recurrence: recurrent Type 2 diabetes mellitus without complication, without long-term current use of insulin E11.9 Diabetes mellitus type: type 2 Diabetes mellitus detention insulin use: without detention use Diabetes mellitus complication status: without complication Assessment & Plan Assessment & Plan (1) Major depression in partial remission: Code(s): F32.4 - Major depressive disorder, single episode, in partial remission Category: Medical Qualifiers: Major depression recurrence: recurrent Qualified Code(s): F33.41 - Major depressive disorder, recurrent, in partial remission Plan: Continue current therapy and follow up with the psychiatrist. (2) Diabetes: Code(s): E11.9 - Type 2 diabetes mellitus without complications Category: Medical Qualifiers: Diabetes mellitus type: type 2 Diabetes mellitus lobsterman insulin use: without lobsterman use Diabetes mellitus complication status: without complication Qualified Code(s): E11.9 - Type 2 diabetes mellitus without complications Plan: A1c in range. Continue current medications. Plan History of Present Illness The patient is a 68-year-old female presenting with left hip pain and anxiety. The hip pain has been persistent but has seen improvement with the use of t urmeric. The patient reports a decline in gait speed and a decrease in consistency with gym attendance over the past two to three weeks. Anxiety persists, and the patient receives care from a psychiatrist. Current management for anxiety includes Raylar and lorazepam, with occasional use of methyphenidate to aid concentration. The patient reports being functional at work despite stress, employing strategies such as allotting additional time to tasks. Patient lives with her spouse and has multigenerational support, with her niece and her daughter residing in the same household. A colonoscopy is scheduled for July, indicating proactive preventative care. Blood pressure has been monitored and noted to be stable. Social History - Employment: The patient reports that work is stressful. - Exercise: Gym attendance has decreased over the past two to three weeks. - Living situation: Resides with spouse, alongside niece and her daughter, representing a three-generation household. Review of Systems - Musculoskeletal: Reports left hip pain. - Neurological: Reports slower gait. - Psychological: Reports anxiety. Physical Exam General: Appearance normal, both eyes and all related structures Nutritional Appearance: Well nourished Orientation/consciousness: Patient oriented x3 Limitations: Slower gait on the left side Head: Normal to inspection Neck: Normal visual inspection Chest: Normal palpation of entire chest wall Respiratory: Normal respiratory effort Neurology: Patient oriented x3 Results Plan - Continue the use of turmeric for hip pain management as it appears effective in reducing symptoms. - Maintain current anxiety management with Raylar and lorazepam, with use of methyphenidate as needed for concentration. - A colonoscopy is scheduled for July; continue with preparations as planned. - Regular blood pressure monitoring to ensure continuous stability. - Encourage increased consistency in gym attendance for general health maintenance. Patient was informed and verbally consented to the use of an ambient scribe for clinic note documentation during this visit. Discussion Notes I discussed with the patient the current management plan for her left hip pain, emphasizing the role of turmeric in symptom alleviation. We reviewed her anxiety management, and she acknowledges the effectiveness of her current medication regimen in conjunction with psychiatric care. The patient is scheduled for a colonoscopy in July and is aware of the procedures involved. We discussed the importance of regular physical activity and stress management to address work- related stress and improve overall well-being. Follow-up was discussed and recommended for six months. Patient Instructions - Continue taking turmeric for hip pain as it provides relief. - Maintain current medication regimen for anxiety, including Raylar and lorazepam. - Prepare for the upcoming colonoscopy as planned. - Monitor blood pressure regularly to ensure it remains stable. - Try to enhance attendance at the gym for better physical health. - Allow yourself additional time to manage work-related responsibilities.
[2024-06-24 08:11] VITALS: BP 126/80; PULSE 70; O2SAT 99; BMI 29.5
== END 2024-06-24 08:33 | disposition home or self-care (01) ==
PROVIDERS: PCP Internal Medicine; Visit Provider Internal Medicine
DX: F33.41 Major depressive disorder, recurrent, in partial remission (principal); E11.9 Type 2 diabetes mellitus without complications

== ENCOUNTER 2024-07-22 06:27 | Day surgery (SDC) | payer OTHER, SELFPAY ==
--- OUTSIDE RECORDS SUMMARY | 2024-07-09 13:25 | XMS_ITS | Encounter Summary ---
Author Organization [facility] Address [address] [place] [address] Care Team Providers Care Spider Assembler Name Role Phone Zuri Gomez MD Primary Care Provider Unavailabl e Encounter Details Date Type Department Care Team (Late st Contact Info) Description 06/15/2020 Orders Only [place] [phone] Frances Headley DDS [address] [place] [address] [place] [address] Social History Tobacco Use Types Packs/Day Years [...] on filedocumented in this encounter Care Teams Spider Assembler Relationship Specialty Start Date End Date Zuri Gomez MD [address] [place] [id number] PCP - General Internal Medicine 03/15/20 documented as of this encounter
--- OUTSIDE RECORDS SUMMARY | 2024-07-09 13:25 | XMS_ITS | Clinical Summary ---
Author Organization [facility] Address [address] [place] [address] Care Team Providers Care Laborer Cement Gun Placing Name Role Phone Pcp, Zuri MARCOS Primary [...] GENERIC MEDICARE PART A ONLY Care Teams Laborer Cement Gun Placing Relationship Specialty Start Date End Date Zuri Gomez MD [address] [place], [place] [id number] PCP - General Internal Medicine 03/15/20
[2024-07-20 12:22] VITALS: BMI 28.8
--- NOTE | 2024-07-21 08:20 | P.CONAN_ITS ---
Documented by User: Estephanie Barrios NP 07/21/24 08:23 HPI - Anesthesia Eval Consult details Narrative: 69yo M for Colonoscopy PMFSH Active Problems Active Problems: All Active Problems Mixed incontinence urge and stress (Acute) Urinary urgency (Acute) Urinary frequency (Acute) Eczema (Acute) At risk for bone density loss (Acute) Dysplasia of cervix, low grade (LILIANA 1) (Acute) Impacted cerumen, left ear (Acute) Osteopenia (Acute) ASCUS of cervix with negative high risk HPV (Acute) Cough (Acute) Menopausal state (Acute) Well woman exam (Acute) Transgender (Acute) Tremor (Acute) Hypercholesterolemia (Acute) Major depression in partial remission (Acute) Periodontal disease (Acute) Obesity (BMI 30.0-34.9) (Acute) HTN (hypertension) (Acute) Diabetes (Acute) Past Medical History Medical History Eczema Dysplasia of cervix, low grade (LILIANA 1) Transgender Hypercholesterolemia Major depression in partial remission Obesity (BMI 30.0-34.9) HTN (hypertension) Family History Family History Father No problems noted. Mother Breast cancer Brother AIDS Maternal Aunt Colon cancer Other Mental health disorder Substance use disorder Surgical History Surgical History Hx of colonoscopy History of dental surgery History of mastectomy Glaucoma, left eye History of oral surgery History of hysterectomy Social History Social History Housing: House Alcohol intake: current Alcohol intake frequency: does not drink Alcohol type: beer Patient Tobacco Use Status: Never used Tobacco e-Cigarette/Vaping Use: Never Used Second Hand Smoke Exposure: No Have you been hit, kicked, punched, or otherwise hurt by someone within the past year? If so, by whom?: No Are you DNR?: No Advance Directives: No Advance Directives Information Provided: Yes Recently lost weight without trying: No Nutrition Risks: No Nutritional Risk service: No Current occupational status: employed Cognitive needs: No Hearing needs: No Vision needs: Yes (glasses) Meds Allergies Allergy/AdvReac Type Severity Reaction Status Date / Time lisinopril [LISINOPRIL] Allergy Severe ? Verified 06/24/24 08:33 ANAPHYLAXIS Egg Derived [EGG DERIVED] Allergy Unknown ANAPHYLAXIS Verified 06/24/24 08:33 Egg White (Diagnostic) Allergy Unknown GI upset Uncoded 06/24/24 08:33 Home Medications ?Medication ?Instructions ?Recorded ?Confirmed ?Last Taken ?Type cholecalciferol (vitamin D3) 25 25 mcg PO DAILY 04/04/20 07/22/24 07/21/24 History mcg (1,000 unit) tablet cariprazine 1.5 mg capsule 1.5 mg PO DAILY 12/12/21 07/22/24 07/21/24 History (Vraylar) betamethasone dipropionate 0.05 % 1 appl topical BID 12/05/22 07/22/24 07/12/24 History topical ointment lorazepam 1 mg tablet 1 mg PO BID 05/26/23 07/22/24 07/22/24 05:00 History methylphenidate HCl 10 mg tablet 10 mg PO BID 05/26/23 07/22/24 07/21/24 History methylphenidate HCl 20 mg tablet 20 mg PO BID 05/26/23 07/22/24 07/21/24 History Exam Height,Weight and Vital Signs: Height 5 ft 5 in Weight 78.471 kg Assessment and Plan Assessment Anesthesia Assessment: Chart Reviewed Documented by User: Jacquelyn Crisostomo MD 07/22/24 07:36 [facility] Active Problems Active Problems: All Active Problems Mixed incontinence urge and stress (Acute) Urinary urgency (Acute) Urinary frequency (Acute) Eczema (Acute) At risk for bone density loss (Acute) Dysplasia of cervix, low grade (LILIANA 1) (Acute) Impacted cerumen, left ear (Acute) Osteopenia (Acute) ASCUS of cervix with negative high risk HPV (Acute) Cough (Acute) Menopausal state (Acute) Well woman exam (Acute) Transgender (Acute) Tremor (Acute) Hypercholesterolemia (Acute) Major depression in partial remission (Acute) Periodontal disease (Acute) Obesity (BMI 30.0-34.9) (Acute) HTN (hypertension) (Acute) Pre-Diabetes (Acute) Past Medical History Medical History Eczema Dysplasia of cervix, low grade (LILIANA 1) Transgender Hypercholesterolemia Major depression in partial remission Obesity (BMI 30.0-34.9) HTN (hypertension) Family History Family History Father No problems noted. Mother Breast cancer Brother AIDS Maternal Aunt Colon cancer Other Mental health disorder Substance use disorder Family history of problems with anesthesia: No Surgical History Surgical History Hx of colonoscopy History of dental surgery History of mastectomy Glaucoma, left eye History of oral surgery History of hysterectomy History of Problems with Anesthesia: No Social History Social History Housing: House Alcohol intake: current Alcohol intake frequency: does not drink Alcohol type: beer Patient Tobacco Use Status: Never used Tobacco e-Cigarette/Vaping Use: Never Used Second Hand Smoke Exposure: No Have you been hit, kicked, punched, or otherwise hurt by someone within the past year? If so, by whom?: No Are you DNR?: No Advance Directives: No Advance Directives Information Provided: Yes Recently lost weight without trying: No Nutrition Risks: No Nutritional Risk service: No Current occupational status: employed Cognitive needs: No Hearing needs: No Vision needs: Yes (glasses) Meds Allergies Allergy/AdvReac Type Severity Reaction Status Date / Time lisinopril [LISINOPRIL] Allergy Severe ? Verified 06/24/24 08:33 ANAPHYLAXIS Egg Derived [EGG DERIVED] Allergy Unknown ANAPHYLAXIS Verified 06/24/24 08:33 Egg White (Diagnostic) Allergy Unknown GI upset Uncoded 06/24/24 08:33 Home Medications ?Medication ?Instructions ?Recorded ?Confirmed ?Last Taken ?Type cholecalciferol (vitamin D3) 25 25 mcg PO DAILY 04/04/20 07/22/24 07/21/24 History mcg (1,000 unit) tablet cariprazine 1.5 mg capsule 1.5 mg PO DAILY 12/12/21 07/22/2407/21/25 History (Vraylar) betamethasone dipropionate 0.05 % 1 appl topical BID 12/05/22 07/22/24 07/12/24 History topical ointment lorazepam 1 mg tablet 1 mg PO BID 05/26/23 07/22/24 07/22/24 05:00 History methylphenidate HCl 10 mg tablet 10 mg PO BID 05/26/23 07/22/24 07/21/24 History methylphenidate HCl 20 mg tablet 20 mg PO BID 05/26/23 07/22/24 07/21/24 History Exam Height,Weight and Vital Signs: Height 5 ft 5 in Weight 78.471 kg Vital Signs Temp Pulse Resp BP Pulse Ox O2 Del Method 07/22/24 06:34 98.5 F 66 18 152/73 H 98 Room Air Airway Mallampati Class: III TM Dist: >3cm Neck ROM: Full Loose/Missing/Broken Teeth: No Heart: RRR Lungs: CTAB Assessment and Plan Assessment Anesthesia Assessment: Anesthesia Plan Discussed and Chart Reviewed Final Anesthetic Review Family History of Problems with Anesthesia: No History of Problems with Anesthesia: No NPO: Yes ASA Class: II Final Preanesthetic Review: No Changes in Pt Med Stat, Meds/Allgs Chart Reviewed , Consent Obtained/Reviewed and Anes Risks/Benef Reviewed Patient Risk: Low Procedure Risk: Low Assessment/Block/Sedation in SS: Assess/Block/Sedation-SS Anesthetic Plan Anesthetic Plan: TIVA Disposition: Standard PACU
[2024-07-22 06:34] VITALS: BP 152/73; PULSE 66; RESP 18; TEMP 36.9; O2SAT 98; BMI 28.3
[2024-07-22] MEDS: Lactated Ringers 1,000 ML 100 ML IVCONT (07:04)
--- NOTE | 2024-07-22 07:45 | MHC.SHP ---
Pre-Procedural Eval Section A - 24 Hr Update-Section A only Date of Service: 07/22/24 Section B - Complete if H&P > 30 days Chief Complaint: Encounter for screening for malignant neoplasm of Details of Present Illness: Eczema Dysplasia of cervix, low grade (LILIANA 1) Transgender Hypercholesterolemia Major depression in partial remission Obesity (BMI 30.0-34.9) HTN (hypertension) Surgical History Hx of colonoscopy History of dental surgery History of mastectomy Glaucoma, left eye History of oral surgery History of hysterectomy Present Medications: see Short Stay Collaborative assessment Allergies: Allergies Allergy/AdvReac Type Severity Reaction Status Date / Time lisinopril [LISINOPRIL] Allergy Severe ? Verified 06/24/24 08:33 ANAPHYLAXIS Egg Derived [EGG DERIVED] Allergy Unknown ANAPHYLAXIS Verified 06/24/24 08:33 Egg White (Diagnostic) Allergy Unknown GI upset Uncoded 06/24/24 08:33 Review of Systems Review of Systems Comment: 10 point ROS negative Exam Surgical H&P Exam: Normal: HEENT, Normal: Heart, Normal: Lungs, Normal: Extremities, Normal: Abdomen, Normal: Skin and Normal: Neurological Plan Diagnosis/Plan: Unchanged I have reviewed the history and physical and performed a pertinent physical examination on my patient. No changes have occurred unless specified. Time Spent With Patient Time: Total time managing care of this patient today ____ minutes.
--- NOTE | 2024-07-22 08:27 | P.OPN-COLO_ITS ---
Colonoscopy Operative Note Operative Note Date of Service: 07/22/24 Narrative: Procedure: Colonoscopy Indication: Personal hx of polyps Endoscopist: Amy Stearns MD Anesthesia Provider: Jacquelyn Crisostomo MD Anesthesia type: MAC Instrument: Olympus [id number]-H190L Consent: Indication, risks vs benefits, and alternatives were discussed with the patient who gave written informed consent to proceed. EKG, pulse, pulse oximetry and blood pressure were monitored throughout the procedure. Please see anesthesia flowsheet. Procedure: The patient was brought to the procedure room and placed in the left lateral decubitus position. IV medications were administered by the anesthesia provider in attendance. A digital rectal exam was performed which was abnormal due to finding of hemorrhoids. A distal attachment cap was affixed to the tip of the colonoscope which was then inserted through the anus and advanced through the colon to the cecum at 75 cm,and terminal ileum. Appendiceal orifice and ileocecal valve were identified. Mucosa was carefully examined under high definition white light as the instrument was slowly withdrawn in a retrograde panoramic fashion. Retroflexion was performed in rectum. The procedure was not difficult. There were no immediate obvious complications. The quality of the prep was BBPS: 1+1+2 = inadequate in cecum Withdrawal time 17 minutes. Limitations: Poor prep. Findings: Mucosa: Copious solid and semi solid stool throughout the colon. The cecal pouch and R colon was not adequately evaluated. Protruding lesions: * 1 semi-pedunculated polyp of size 12 mm in cecum. Hot snare polypectomy was performed. The polyp was completely removed and retrieved. * 1 sessile polyp of size 2 mm in transverse colon. Cold snare polypectomy was performed. The polyp was completely removed but not retrieved. * Medium internal hemorrhoids [without] stigmata of recent bleeding. Impression: 1. Poor prep 2. Total of 2 polyps removed 3. Internal hemorrhoids Recommendations: - Follow path results. - Repeat colonoscopy in 1 year due to poor prep
[2024-07-22 08:28] VITALS: BP 137/77; PULSE 58; RESP 18; TEMP 36.1; O2SAT 100
[2024-07-22 08:43] VITALS: BP 148/76; PULSE 60; RESP 18; TEMP 36.2; O2SAT 100
== END 2024-07-22 09:08 | disposition home or self-care (01) ==
PROVIDERS: PCP Internal Medicine; Visit Provider Internal Medicine
PROC: 0DJD8ZZ Inspection of Lower Intestinal Tract, Via Natural or Artificial Opening Endoscopic (ICD-10-PCS; CPT 45378; principal; 2024-07-22 07:30)
DX: Z12.11 Encounter for screening for malignant neoplasm of colon (principal); Z86.0101 Personal history of adenomatous and serrated colon polyps; D12.0 Benign neoplasm of cecum; K63.5 Polyp of colon; K64.8 Other hemorrhoids; L30.9 Dermatitis, unspecified; I10 Essential (primary) hypertension; E78.00 Pure hypercholesterolemia, unspecified; F32.4 Major depressive disorder, single episode, in partial remission; E66.9 Obesity, unspecified; Z68.28 Body mass index [BMI] 28.0-28.9, adult; N87.0 Mild cervical dysplasia; F64.0 Transsexualism; Z87.890 Personal history of sex reassignment; Z90.13 Acquired absence of bilateral breasts and nipples; Z88.8 Allergy status to other drugs, medicaments and biological substances; Z91.012 Allergy to eggs; Z79.899 Other long term (current) drug therapy; Z98.890 Other specified postprocedural states
CPT/HCPCS: 45385; 88305; J2003; J2704

== ENCOUNTER → 2024-07-22 06:27 | Outpatient (BNV) | payer OTHER, SELFPAY | PROVIDERS: PCP Internal Medicine; Visit Provider Internal Medicine | DX: Z12.11 Encounter for screening for malignant neoplasm of colon (principal); Z86.0100 Personal history of colon polyps, unspecified; D12.0 Benign neoplasm of cecum; K64.8 Other hemorrhoids | CPT/HCPCS: 45385 ==

== ENCOUNTER 2025-01-06 07:52 | Outpatient (AMB) | payer OTHER, SELFPAY ==
--- OUTSIDE RECORDS SUMMARY | 2025-01-06 07:57 | XMS_ITS | Encounter Summary ---
Author Organization [facility] Address [address] [place] [address] Care Team Providers Care Systems Security Consultant Name Role Phone Zuri Gomez MD Primary Care Provider Unavailabl e Encounter Details Date Type Department Care Team (Late st Contact Info) Description 06/15/2020 Orders Only [place] [phone] Frances Headley DDS [address] [place] [address] [place] [address] Social History Tobacco Use Types Packs/Day Years [...] on filedocumented in this encounter Care Teams Systems Security Consultant Relationship Specialty Start Date End Date Zuri Gomez MD [address] [place] [id number] PCP - General Internal Medicine 03/15/20 documented as of this encounter
--- OUTSIDE RECORDS SUMMARY | 2025-01-06 07:57 | XMS_ITS | Clinical Summary ---
[facility] Organization [facility] Address [address] [place] [address] Care Team Providers Care Lockstitch Waistband Setter Name Role Phone Pcp, Zuri MD Primary Care Provider Unavailabl e Social History [...] DTaP,Tdap,and Td Vaccines (1 - Tdap) 1973 Pneumococcal Vaccine, 50+ Ye ars (1 of 1 - PCV) 2005 Zoster Vaccines (1 of 2) 2005 COVID-19 Vaccine ( - 2023-2 5 season) 2024 Influenza Vaccine (#1) 2025 HPV Vaccines Aged Out No longer eligi ble based on patient's age to complete this topic Hepatitis A Vaccines Aged Out No long er eligible based on patient's age to complete this topic Meningococcal Vaccine Aged Out No siddharth elaine eligible based on patient's age to complete this topic Insurance COMMERCIAL GENERIC MEDICARE PART A ONLY Care Teams Lockstitch Waistband Setter Relationship Specialty Start Date End Date Zuri Gomez MD [address] [place] [address] PCP - General Internal Medicine 03/15/20
--- OUTSIDE RECORDS SUMMARY | 2025-01-06 07:57 | XMS_ITS ---
Author Name [facility] Organization Unknown Encounters Encounter Type Encounter Reason Primary Diagnosis Location Date Ambulatory Encounter for sc reening for other viral diseases [facility] 12/03/2021 Ambulatory Encounter for sc reening for other viral diseases [facility] 06/16/2021 Care Team Organization Name Specialty Phone Email Start Date End Da te [facility] PCP,No Primary Care 12/03/2021 [facility] NO PCP Primary Care 06/16/2021
--- NOTE | 2025-01-06 08:01 | A.OFFPC_ITS ---
Vital Signs 01/06/25 08:02 Height 5 ft 5 in Weight 185 lb 6 oz BMI 30.8 BP 134/88 Blood Pressure Location Lt brachial Position Sitting Pulse 60 Pulse Source Pulse Oximeter Temp 97.3 F Temp Source Temporal Artery Scan Pulse Oximetry (%) 98 Oxygen Delivery Method Room Air Intake Visit Reasons: 6mth f/u Allergies lisinopril (LISINOPRIL) Allergy (Severe, Verified 01/06/25 08:04) ? ANAPHYLAXIS Egg Derived (EGG DERIVED) Allergy (Unknown, Verified 01/06/25 08:04) ANAPHYLAXIS Egg White (Diagnostic) Allergy (Unknown, Uncoded 01/06/25 08:04) GI upset Tobacco use date assessed: 01/06/25 Fall risk assessment: No Falls in past year Last assessed Fall Risk: 01/06/25 Dental Screening Dental Screen Date: 01/06/25 Did you have a dental visit in the last 12 months?: Yes Did you have a dental problem in the last 6 months where you did not have access to dental care?: No Was dental information given to patient?: Patient has dentist [facility] Medical History Eczema Dysplasia of cervix, low grade (LILIANA 1) Transgender Hypercholesterolemia Major depression in partial remission Obesity (BMI 30.0-34.9) HTN (hypertension) Surgical History Hx of colonoscopy (07/22/24) History of dental surgery History of mastectomy Glaucoma, left eye History of oral surgery History of hysterectomy Family History Father No problems noted. Mother Breast cancer Brother AIDS Maternal Aunt Colon cancer Other Mental health disorder Substance use disorder Social History Housing: House Alcohol intake: current Alcohol intake frequency: does not drink Alcohol type: beer Patient Tobacco Use Status: Never used Tobacco e-Cigarette/Vaping Use: Never Used Second Hand Smoke Exposure: No service: No Current occupational status: employed Cognitive needs: No Hearing needs: No Vision needs: Yes (glasses) Female Reproductive History Menstrual Age of Menarche: 12 Questionnaire PHQ-9 Over the last 2 weeks, how often have you been bothered by any of the following problems? 1. Little interest or pleasure in doing things: more than half the days 2. Feeling down, depressed, or hopeless: more than half the days 3. Trouble falling or staying asleep, or sleeping too much: more than half the days 4. Feeling tired or having little energy: more than half the days 5. Poor appetite or overeating: several days 6. Feeling bad about yourself - or that you are a failure or have let yourself or your family down: several days 7. Trouble concentrating on things, such as reading the newspaper or watching television: more than half the days 8. Moving or speaking so slowly that other people could have noticed. Or the opposite - being so fidgety or restless that you have been moving around a lot more than usual: more than half the days 9. Thoughts that you would be better off or of hurting yourself in some way: not at all Total score: 14 Source: Developed by Drs. Shekhar Yancey, Iesha Phoenix, Antonio Lux and colleagues, with an educational kelly from [employer]. Thrive Questionnaire Date Thrive assessed: 12/30/24 I am a: Patient What is your living situation today?: I have a steady place to live Within the past 12 months, did the food you bought not last and you didn't have the money to get more?: Never true Within the past 12 months, did you worry whether your food would run out before you got money to buy more?: Never true Do you have trouble paying for medicines?: No Do you have trouble getting transportation to medical appointments?: No Do you have trouble paying your heating and electricity bill?: No Do you have trouble taking care of your child, family member or friend?: No Do you have trouble with day-to-day activities such as bathing, preparing meals, shopping, managing finances, etc.?: I choose not to answer this question Are you currently unemployed and looking for a job?: No Are you interested in more education?: No Please select the resources that you would like help with: None Currently or been in a relationship where the following occur: I choose not to answer THRIVE Score: 0 AUDIT C Alcohol Use Questionnaire (AUDIT-C) 1. How often do you have a drink containing alcohol?: Monthly or less 2. How many drinks containing alcohol do you have on a typical day when you are drinking?: 1 or 2 3. How often do you have six or more drinks on one occasion?: Never Total Score: 1 RK-7 AMB Questionnaire RK-7 Date RK - 7 assessed: 06/24/24 Feeling nervous, anxious, or on edge: 1 = Several days Not being able to stop or control worryin = Several days Worrying too much about different things: 1 = Several days Trouble relaxin = More than half the days Being so restless that it is hard to sit still: 1 = Several days Becoming easily annoyed or irritable: 2 = More than half the days Feeling afraid as if something awful might happen: 2 = More than half the days Total RK-7 score (0-4 normal; 5-9 mild; 10-14 moderate; 15-21 severe): 10 Source: Developed by Drs. Shekhar Yancey, Iesha Phoenix, Antonio Lux and colleagues, with an educational kelly from [employer]. Physical exam (Primary Care) Vital Signs: Last Vital Signs Temp 97.3 F 01/06/25 08:02 Pulse 60 01/06/25 08:02 BP 134/88 01/06/25 08:02 Pulse Ox 98 01/06/25 08:02 Oxygen Delivery Method Room Air 01/06/25 08:02 BMI result Body Mass Index 30.8 Tobacco/Smoking Status: Tobacco use Status Tobacco use date assessed 01/06/25 01/06/25 08:07 Patient Tobacco Use Status Never used Tobacco 01/06/25 08:07 e-Cigarette/Vaping Use Never Used 01/06/25 08:07 PHQ-9: PHQ-9 Score PHQ-9: Total score 14 01/06/25 08:07 Thrive Assessment: Date of Thrive Assessment Date Thrive assessed 12/30/24 01/06/25 08:07 Currently or been in a relationship where the following occur: I choose not to answer Results AMB Hemoglobin A1c AMB Hemoglobin A1c 5.6 % Last Edit by Irina Bhandari CMA on 01/06/25 08:10 Results Reviewed Results Reviewed: Laboratory Last Values Hgb A1c (Clinic) 5.6 % (4.0-6.0) 01/06/25 08:07 Coding Level of Care Code Est Pt Level 4 (87582) Complex EM visit Add On G2211 Diagnoses Recurrent major depressive disorder, in partial remission F33.41 Major depression recurrence: recurrent Essential hypertension I10 Hypertension type: essential hypertension Assessment & Plan Assessment & Plan (1) Major depression in partial remission: Code(s): F32.4 - Major depressive disorder, single episode, in partial remission Category: Medical Qualifiers: Major depression recurrence: recurrent Qualified Code(s): F33.41 - Major depressive disorder, recurrent, in partial remission Plan: Continue current meds (2) HTN (hypertension): Code(s): I10 - Essential (primary) hypertension Category: Medical Qualifiers: Hypertension type: essential hypertension Qualified Code(s): I10 - Essential (primary) hypertension Plan: Continue current meds Plan History of Present Illness - The patient is a 69-year-old female presenting with a tremor. - The tremor is primarily in the hands and is noticeable during fine motor tasks such as writing and eating. - The patient reports that the tremor is awkward in public settings but does not significantly impair her ability to write. - The patient has a history of depression, for which she is under psychiatric care and has had her medication dosage increased recently. - The patient is compliant with her medications and has been advised to consult her psychiatrist regarding the potential medication-induced tremor. - Blood work has been recommended to assess thyroid function and screen for diabetes. 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 Review of Systems - Neurological: Reports tremor in hands, particularly during fine motor tasks. Physical Exam General: Cooperative and healthy appearing Nutritional Appearance: Well nourished Orientation/consciousness: Patient oriented x3 Limitations: No limitations Head: Normal to inspection General: Appearance normal, both eyes and all related structures Neck: Normal visual inspection Chest: Normal palpation of entire chest wall Respiratory: N ormal respiratory effort Neurology: Patient oriented x3, reports a tremor in the hand when performing fine tasks. Results Plan 1. Tremor - The patient is advised to consult with her psychiatrist to evaluate if the tremor is medication-induced. - Blood work is recommended to assess thyroid function and screen for diabetes as potential contributing factors. 2. Depression - The patient is under psychiatric care with recent medication adjustment. - Monitoring for side effects such as tremor is advised. 3. Preventative Care - Blood work is recommended for thyroid function and diabetes screening. Discussion Notes I discussed with the patient the possibility that her tremor may be related to her psychiatric medication. I advised her to consult with her psychiatrist to evaluate this possibility. Additionally, I recommended blood work to assess her thyroid function and screen for diabetes, as these could be contributing factors. We agreed on a follow-up in six months to reassess her condition and any changes in her symptoms. Patient Instructions - Consult with your psychiatrist about the tremor and possible medication adjustments. - Complete the recommended blood work for thyroid and diabetes screening. - Schedule a follow-up appointment in six months. Orders: Orders AMB Hemoglobin A1c Today Z13.9 - Encounter for screening, unspecified Complete Blood Count no Diff Today E11.9 - Type 2 diabetes mellitus without complications, F33.41 - Major depressive disorder, recurrent, in partial remission, I10 - Essential (primary) hypertension Basic Metabolic Panel Today E11.9 - Type 2 diabetes mellitus without complications, F33.41 - Major depressive disorder, recurrent, in partial remission, I10 - Essential (primary) hypertension Hemoglobin A1c Today E11.9 - Type 2 diabetes mellitus without complications, F33.41 - Major depressive disorder, recurrent, in partial remission, I10 - Essential (primary) hypertension Liver Panel Today E11.9 - Type 2 diabetes mellitus without complications, F33.41 - Major depressive disorder, recurrent, in partial remission, I10 - Essential (primary) hypertension UA and rflx microscopic Today E11.9 - Type 2 diabetes mellitus without complications, F33.41 - Major depressive disorder, recurrent, in partial remission, I10 - Essential (primary) hypertension Lipid Panel Today E11.9 - Type 2 diabetes mellitus without complications, F33.41 - Major depressive disorder, recurrent, in partial remission, I10 - Essential (primary) hypertension Thyroid Stimulating Hormone Today E11.9 - Type 2 diabetes mellitus without complications, F33.41 - Major depressive disorder, recurrent, in partial remission, I10 - Essential (primary) hypertension Microalbumin, Random (w Creat) Today E11.9 - Type 2 diabetes mellitus without complications, F33.41 - Major depressive disorder, recurrent, in partial remission, I10 - Essential (primary) hypertension Medications: Refilled epinephrine (EpiPen) do not exceed 12 doses per 24 hrs 0.3 mg (0.3 mL) IM Q30M PRN 2 ea 0RF Allergy
[2025-01-06 08:02] VITALS: BP 134/88; PULSE 60; TEMP 36.3; O2SAT 98; BMI 30.8
== END 2025-01-06 08:14 | disposition home or self-care (01) ==
LOC: HO.HMCH 07:53
PROVIDERS: PCP Internal Medicine; Visit Provider Internal Medicine
DX: F33.41 Major depressive disorder, recurrent, in partial remission (principal); I10 Essential (primary) hypertension; Z13.9 Encounter for screening, unspecified

== ENCOUNTER → 2025-01-06 07:52 | Outpatient (BNVA) | payer OTHER, SELFPAY | PROVIDERS: PCP Internal Medicine; Visit Provider Internal Medicine | DX: F33.41 Major depressive disorder, recurrent, in partial remission (principal); I10 Essential (primary) hypertension; R25.1 Tremor, unspecified; E11.9 Type 2 diabetes mellitus without complications; Z79.899 Other long term (current) drug therapy | CPT/HCPCS: 83036; 96127 ==

== ENCOUNTER 2025-01-08 08:55 | Outpatient (REF) | payer OTHER, SELFPAY ==
--- OUTSIDE RECORDS SUMMARY | 2025-01-08 08:58 | XMS_ITS | Encounter Summary ---
Author Organization [facility] Address [address] [place] [address] Care Team Providers Care Plaster Mechanic Name Role Phone Zuri Gomez MD Primary Care Provider Unavailabl e Encounter Details Date Type Department Care Team (Late st Contact Info) Description 06/15/2020 [place] [address] Frances Headley DDS [address] [place] [address] [place] [address] Social History Tobacco Use Types Packs/Day Years [...] on filedocumented in this encounter Care Teams Plaster Mechanic Relationship Specialty Start Date End Date Zuri Gomez MD [address] [place] [id number] PCP - General Internal Medicine 03/15/20 documented as of this encounter
--- OUTSIDE RECORDS SUMMARY | 2025-01-08 08:58 | XMS_ITS | Clinical Summary ---
Author Organization [facility] Address [address] [place] [address] Care Team Providers Care Shells Inspector Name Role Phone Pcp, Zuri MD Primary [...] GENERIC MEDICARE PART A ONLY Care Teams Shells Inspector Relationship Specialty Start Date End Date Zuri Gomez MD [address] [place] [address] PCP - General Internal Medicine 03/15/20
[2025-01-08 09:39] LABS: Hemoglobin A1C 132.2688 umol/L; Total Hemoglobin (HGBA1C) 3471.0771 umol/L
[2025-01-08 10:04] LABS: Microalbum/Creatinine Ratio Ur 10.9 ug/mg cr (<30)
[2025-01-08 10:05] LABS: Hematocrit 37.8 % (37.0-47.0); Hemoglobin 13.0 g/dl (12.0-16.0); Mean Corpuscular HGB Conc 34.4 g/dl (31.0-35.0); Mean Corpuscular Hemoglobin 31.2 pg (27.0-33.0); Mean Corpuscular Volume 90.6 fL (80.0-98.0); NRBC Abs Auto 0.000 X10*3/uL (0.0-0.012); NRBC Pct Auto 0.0 /100WBC (0.0-0.2); Platelet Count 251 X10*3/uL (160-400); Red Blood Count 4.17 X10*6/uL (4.20-5.50); White Blood Count 5.5 X10*3/uL (4.8-10.8)
[2025-01-08 10:09] LABS: Alanine Aminotransferase 22 U/L (0-31); Albumin Level 4.5 g/dL (3.5-5.0); Alkaline Phosphatase 68 U/L (39-117); Anion Gap 11 (12-20); Aspartate Amino Transferase 29 U/L (5-31); Blood Urea Nitrogen 25 mg/dL (9-16); Calcium 9.5 mg/dL (8.4-10.2); Carbon Dioxide 27 mmol/L (22-29); Chloride 107 mmol/L (96-108); Cholesterol 281 mg/dL (<200); Estimated Glomerular Filt Rate 43; HDL Cholesterol 57 mg/dL (>40); Potassium 4.1 mmol/L (3.3-5.1); Sodium 141 mmol/L (135-145); Total Protein 7.6 g/dL (6.5-8.0); Triglycerides 117 mg/dL (<150)
[2025-01-08 10:13] LABS: Appearance Urine Clear; Glucose Urine UA Negative (Negative); PH 6.0 (5.0-9.0); Specific Gravity - Urine 1.020 (1.005-1.025)
[2025-01-08 10:23] LABS: Thyroid Stimulating Hormone 1.43 uIU/mL (0.32-4.0)
== END 2025-01-08 08:56 | disposition home or self-care (01) ==
LOC: HO.LAB 08:55
PROVIDERS: PCP Internal Medicine; Visit Provider Internal Medicine
DX: F33.41 Major depressive disorder, recurrent, in partial remission (principal); I10 Essential (primary) hypertension; E11.9 Type 2 diabetes mellitus without complications
CPT/HCPCS: 36415; 80048; 80061; 80076; 81003; 82043; 82570; 83036; 84443; 85027

== ENCOUNTER 2025-02-09 07:24 | Outpatient (REF) | payer OTHER, SELFPAY | END 2025-02-09 07:25 | disposition home or self-care (01) | LOC: HO.LNP 07:24 | PROVIDERS: PCP Internal Medicine; Visit Provider Obstetrics & Gynecology | DX: Z01.419 Encounter for gynecological examination (general) (routine) without abnormal findings (principal); Z11.51 Encounter for screening for human papillomavirus (HPV); N87.0 Mild cervical dysplasia; Z78.0 Asymptomatic menopausal state | CPT/HCPCS: 87626; 88175 ==

== ENCOUNTER 2025-02-09 07:24 | Outpatient (AMB) | payer OTHER, SELFPAY ==
--- OUTSIDE RECORDS SUMMARY | 2025-02-09 07:26 | XMS_ITS | Clinical Summary ---
Author Organization [facility] Address [address] [place] [address] Care Team Providers Care Shore Hand Dredge Or Barge Name Role Phone Pcp, Zuri MD Primary [...] COVID-19 Vaccine ( - 2023-2 5 season) 2025 Influenza Vaccine (#1) 2025 HPV Vaccines Aged Out No longer eligi ble based on patient's age to complete this topic Hepatitis A Vaccines Aged Out No long er eligible based on patient's age to complete this topic Meningococcal Vaccine Aged Out No siddharth elaine eligible based on patient's age to complete this topic Insurance COMMERCIAL GENERIC MEDICARE PART A ONLY Care Teams Shore Hand Dredge Or Barge Relationship Specialty Start Date End Date Zuri Gomez MD [address] [place] [address] PCP - General Internal Medicine 03/15/20
--- OUTSIDE RECORDS SUMMARY | 2025-02-09 07:26 | XMS_ITS | Encounter Summary ---
Author Organization [facility] Address [address] [place] [address] Care Team Providers Care Senior Administrator Support Name Role Phone Zuri Gomez MD Primary Care Provider Unavailabl e Encounter Details Date Type Department Care Team (Late st Contact Info) Description 06/15/2020 Orders Only [place] [phone] Frances Headley DDS [address] [place] [address] [place] [address] Social History Tobacco Use Types Packs/Day Years [...] on filedocumented in this encounter Care Teams Senior Administrator Support Relationship Specialty Start Date End Date Zuri Gomez MD [address] [place] [id number] PCP - General Internal Medicine 03/15/20 documented as of this encounter
[2025-02-09 07:27] VITALS: BP 110/70; BMI 30.8
--- NOTE | 2025-02-09 07:27 | A.OFFVIS_ITS ---
Vital Signs 02/09/25 07:27 Height 5 ft 5 in Weight 185 lb BMI 30.8 BP 110/70 Intake Visit Reasons: annual Sign Board Erector Required: No Information Interpreted: non-clinical & clinical Clerical And Office Support Workers: Clerical And Office Support Workers Present (Donya BAE) Accompanied by: Self / Same As Patient Allergies lisinopril (LISINOPRIL) Allergy (Severe, Verified 02/09/25 07:31) ? ANAPHYLAXIS Egg Derived (EGG DERIVED) Allergy (Unknown, Verified 02/09/25 07:31) ANAPHYLAXIS Egg White (Diagnostic) Allergy (Unknown, Uncoded 02/09/25 07:31) GI upset Post menopausal: Yes HPI Comments Details: Presenting for annual exam. No complaints. Last Pap/HPV was in 01/31, negative Last Mammogram the patient is status post double mastectomies Last Colonoscopy was in 08/03, the recommendation was to repeat in 1 year Last DEXA scan was in 04/03 [facility] Medical History Eczema Dysplasia of cervix, low grade (LILIANA 1) Transgender Hypercholesterolemia Major depression in partial remission Obesity (BMI 30.0-34.9) HTN (hypertension) Surgical History Hx of colonoscopy (07/22/24) History of dental surgery History of mastectomy Glaucoma, left eye History of oral surgery History of hysterectomy Family History Father No problems noted. Mother Breast cancer Brother AIDS Maternal Aunt Colon cancer Other Mental health disorder Substance use disorder Social History Housing: House Alcohol intake: current Alcohol intake frequency: does not drink Alcohol type: beer Patient Tobacco Use Status: Never used Tobacco e-Cigarette/Vaping Use: Never Used Second Hand Smoke Exposure: No service: No Current occupational status: employed Cognitive needs: No Hearing needs: No Vision needs: Yes (glasses) Female Reproductive History Menstrual Age of Menarche: 12 Menopause type: surgical Date of last pap smear: 01/10/22 Review of Systems Const All systems reviewed & are unremarkable except as noted in HPI and below Card Reports as per HPI Resp Reports as per HPI GI Reports as per HPI and Reports no additional complaints Reports as per HPI Physical Exam Vital Signs: Last Vital Signs BP 110/70 02/09/25 07:27 BMI result Body Mass Index 30.8 Const General: cooperative, healthy appearing and comfortable Resp Effort & Inspection: normal respiratory effort Auscultation: clear to auscultation bilaterally Percussion: percussion normal Cardio Palpation: normal PMI Rate: regular rate Rhythm: regular rhythm Heart sounds: no murmurs and no rubs Peripheral pulses: Peripheral pulses 2+ throughout GI Inspection: Yes normal to inspection Palpation (GI): Soft to palpation, nontender, no guarding, not rigid and No hepatosplenomegaly present Percussion: Yes normal to percussion Auscultation: normal bowel sounds Rectal Exam - Female: deferred General: Yes bladder normal to palpation External Female Exam: No lesion Speculum Exam - Vagina: normal appearance of the vagina, normal palpation, normal vaginal discharge and not erythematous Speculum Exam - Cervix: normal appearance of the cervix and normal palpation Bimanual exam- vagina & uterus: normal bimanual exam, normal palpation, uterine size normal, bladder normal to palpation, consistency normal and normal palpatio n Bimanual Exam- Adnexa, other: normal adnexae, no masses and no tenderness Assessment & Plan Assessment & Plan (1) Well woman exam: Comment: LILIANA 1 in 2020, followed by normal co testing in 2021 Code(s): Z01.419 - Encounter for gynecological examination (general) (routine) without abnormal findings Category: Medical Plan: Co testing done Counseled the patient about the recommended dietary allowance of 1200 mg of Calcium & 800 IU of vitamin D. The patient has is in the process of scheduling her screening colonoscopy . Will order DEXA scan . The patient was instructed to perform monthly self-breast exams and to schedule a 2 week DEXA scan follow-up appointment and an annual exam in a year; All questions answered and the patient verbalized understanding. Orders: Orders XR DEXA axial skeleton Today Z78.0 - Asymptomatic menopausal state Coding Level of Care Code Est Pt Prev Care >65y(88733) Diagnoses Well woman exam Z01.419
== END 2025-02-09 07:44 | disposition home or self-care (01) ==
LOC: HO.HWS 07:24
PROVIDERS: PCP Internal Medicine; Visit Provider Obstetrics & Gynecology
DX: Z01.419 Encounter for gynecological examination (general) (routine) without abnormal findings (principal)
CPT/HCPCS: 99397; 99459

== ENCOUNTER 2025-03-14 07:16 | Outpatient (AMB) | payer OTHER, SELFPAY ==
--- OUTSIDE RECORDS SUMMARY | 2025-03-14 07:18 | XMS_ITS | Clinical Summary ---
Author Organization [facility] Address [address] [place] [address] Care Team Providers Care Field Contact Technician Name Role Phone Pcp, Zuri MD Primary [...] GENERIC MEDICARE PART A ONLY Care Teams Field Contact Technician Relationship Specialty Start Date End Date Zuri Gomez MD [address] [place] [address] PCP - General Internal Medicine 03/15/20
--- OUTSIDE RECORDS SUMMARY | 2025-03-14 07:18 | XMS_ITS | Encounter Summary ---
Author Organization [facility] Address [address] [place] [address] Care Team Providers Care Duck Farmer Name Role Phone Zuri Gomez MD Primary Care Provider Unavailabl e Encounter Details Date Type Department Care Team (Late st Contact Info) Description 06/15/2020 Orders Only [place] [phone] Frances Headley DDS [address] [place] [address] [place] [address] Social History Tobacco Use Types Packs/Day Years [...] on filedocumented in this encounter Care Teams Duck Farmer Relationship Specialty Start Date End Date Zuri Gomez MD [address] [place] [id number] PCP - General Internal Medicine 03/15/20 documented as of this encounter
[2025-03-14 07:24] VITALS: BP 130/80; BMI 30.8
--- NOTE | 2025-03-14 07:24 | MHC.OFFVIS ---
Vital Signs 03/14/25 07:24 Height 5 ft 5 in Weight 185 lb BMI 30.8 BP 130/80 Intake Visit Reasons: Colposcopy Instructor Of Spanish Required: No Information Interpreted: non-clinical & clinical Machine Cloth Measurer: Machine Cloth Measurer Present (Donya BAE) Accompanied by: Self / Same As Patient Allergies lisinopril (LISINOPRIL) Allergy (Severe, Verified 03/14/25 07:25) ? ANAPHYLAXIS Egg Derived (EGG DERIVED) Allergy (Unknown, Verified 03/14/25 07:25) ANAPHYLAXIS Egg White (Diagnostic) Allergy (Unknown, Uncoded 03/14/25 07:25) GI upset Post menopausal: Yes HPI Comments Details: Presenting for abnormal Pap smear showing ASCUS/HPV negative [facility] Medical History (Updated 03/14/25 @ 07:40 by Minh Barron MD) Eczema Dysplasia of cervix, low grade (LILIANA 1) Transgender Hypercholesterolemia Major depression in partial remission Obesity (BMI 30.0-34.9) HTN (hypertension) Surgical History Hx of colonoscopy (07/22/24) History of dental surgery History of mastectomy Glaucoma, left eye History of oral surgery History of hysterectomy Family History Father No problems noted. Mother Breast cancer Brother AIDS Maternal Aunt Colon cancer Other Mental health disorder Substance use disorder Social History Housing: House Alcohol intake: current Alcohol intake frequency: does not drink Alcohol type: beer Patient Tobacco Use Status: Never used Tobacco e-Cigarette/Vaping Use: Never Used Second Hand Smoke Exposure: No service: No Current occupational status: employed Cognitive needs: No Hearing needs: No Vision needs: Yes (glasses) Female Reproductive History Menstrual Age of Menarche: 12 Physical Exam Vital Signs: Last Vital Signs BP 130/80 03/14/25 07:24 BMI result Body Mass Index 30.8 Office Procedures Colposcopy Colposcopy: Pre-Procedure Counseling: Before beginning the procedure, I conducted comprehensive counseling with the patient. We thoroughly discussed the procedure itself, including its details, alternatives, and all associated risks. This included but not limited to the following complications such as bleeding, infection, and injury to the vagina, bladder, and vessels, as well as the potential need for transfusion with all its associated risks. Subsequently, the patient sign the consent. Pap smear result: LSIL. Procedure: During the procedure, the following steps were performed: A speculum was inserted, and acetic acid was applied. Colposcopy was conducted, allowing visualization of the transformation zone. Acetowhite lesions were identified at the 1 o'clock position. Cervical biopsies were obtained from the 1 o'clock position, followed by an endocervical curettage (ECC). Vaginoscopy of the upper vagina revealed no evidence of aceto-white lesions. Hemostasis was achieved using Monsel solution, and the patient tolerated the procedure well. Post-Procedure Instructions: The patient was advised to promptly contact the office or the after hours answering service or go to the emergency room if experiencing a temperature exceeding 100.4?F, abdominal pain, nausea/vomiting, or bleeding. Additionally, the patient was instructed to abstain from vaginal intercourse and bathtub use. The patient confirmed understanding of these instructions. Discharge Instructions: The patient was instructed to schedule a follow-up appointment in 2 weeks for further evaluation and management. Please note that this note was generated using a voice recognition program, and errors may have occurred during personal lines sales rep. 15912-[place] of cervix including upper vagina with biopsy and ECC Procedure code (CPT) selection complete Assessment & Plan Assessment & Plan (1) ASCUS of cervix with negative high risk HPV: Comment: Preceded by LILIANA 1 in 11/29 Code(s): R87.610 - Atypical squamous cells of undetermined significance on cytologic smear of cervix (ASC-US) Category: Medical Plan: Discussed with the patient the result of her abnormal pap, its significance, risk of progression, persistence, and regression. the false positive/negative rate of a Pap smear as a screening test in detecting cervical cancer and the indication for a diagnostic test -colposcopy, biopsy, endocervical curettage. The patient verbalized understanding and agreed with the plan, all questions answered. Colposcopy, biopsy /ECC done, see procedure note Orders: Orders AMB Colposcopy Today R87.610 - Atypical squamous cells of undetermined significance on cytologic smear of cervix (ASC-US) Coding Level of Care Code Procedure Only Diagnoses ASCUS of cervix with negative high risk HPV R87.610 CPT Codes Colposcopy - CPT: 38167-Ohykfnysl of cervix including upper vagina with biopsy and ECC ([id number])
== END 2025-03-14 07:57 | disposition home or self-care (01) ==
LOC: HO.HWS 07:16
PROVIDERS: PCP Internal Medicine; Visit Provider Obstetrics & Gynecology
DX: R87.610 Atypical squamous cells of undetermined significance on cytologic smear of cervix (ASC-US) (principal)
CPT/HCPCS: 57454

== ENCOUNTER 2025-03-14 07:16 | Outpatient (REF) | payer OTHER, SELFPAY | END 2025-03-14 07:17 | disposition home or self-care (01) | LOC: HO.LNP 07:16 | PROVIDERS: PCP Internal Medicine; Visit Provider Obstetrics & Gynecology | DX: R87.610 Atypical squamous cells of undetermined significance on cytologic smear of cervix (ASC-US) (principal) | CPT/HCPCS: 57454; 88305 ==

== ENCOUNTER 2025-04-01 11:15 | Outpatient (REF) | payer OTHER, SELFPAY ==
--- NOTE | ~2025-04-01 | MM_ITS ---
EXAMINATION: DXA BONE DENSITY AXIAL HISTORY: Z78.0 - Asymptomatic menopausal state TECHNIQUE: Desi Hits Dual energy absorptiometry (DEXA) of the lumbar spine, total left hip, and femoral neck was performed. COMPARISON: Comparison is made with the prior examination dated 02/19/2023. FINDINGS: The bone mineral density of the lumbar spine is 1.438 g/cm2, corresponding to a T-score of 2.2, and a Z-score of 2.6. This is indicative of normal bone mineral density. This represents a BMD change of -9.1% compared to the prior exam. This is statistically significant. The bone mineral density of the left total hip is 1.030 g/cm2, corresponding to a T-score of 0.2, and a Z-score of 0.2. This is indicative of normal bone mineral density. This represents a BMD change of -7.8% compared to the prior exam. This is statistically significant. The bone mineral density of the left femoral neck is 0.961 g/cm2, corresponding to a T-score of -0.6, and a Z-score of -0.2. This is indicative of normal bone mineral density. This represents a BMD change of -8.5% compared to the prior exam. FRACTURE RISK: The FRAX index suggests a ten year probability of major osteoporotic fracture of 3.4%, and of hip fracture 0.2%. MM/XR DEXA axial skeleton IMPRESSION: Based on bone mineral density, and according to World Health Organization (WHO) criteria, the diagnosis is consistent with normal bone mineral density. Statistically, 68% of repeat scans fall within 1 SD (+/- 0.010 g/cm2 for AP spine L1-L4) and 1 SD (+/- 0.012 g/cm2 for femur total) FRAX is a trademark of the [employer], a World Health Organization (WHO) Collaborating Center. Electronically signed by: Shekhar Go MD 04/01/2025 12:38 PM [facility]
--- OUTSIDE RECORDS SUMMARY | 2025-04-01 12:05 | XMS_ITS | Clinical Summary ---
Author Organization [facility] Address [address] [place] [address] Care Team Providers Care Pruner Name Role Phone Pcp, Zuri MD Primary [...] of 2) 2005 COVID-19 Vaccine ( - 2024-2 6 season) 2025 Influenza Vaccine (#1) 2025 HPV [...] GENERIC MEDICARE PART A ONLY Care Teams Pruner Relationship Specialty Start Date End Date Zuri Gomez MD [address] [place] [address] PCP - General Internal Medicine 03/15/20
--- OUTSIDE RECORDS SUMMARY | 2025-04-01 12:05 | XMS_ITS | Encounter Summary ---
Author Organization [facility] Address [address] [place] [address] Care Team Providers Care Manager Council Name Role Phone Zuri Gomez MD Primary Care Provider Unavailabl e Encounter Details Date Type Department Care Team (Late st Contact Info) Description 06/15/2020 Orders Only [place] [phone] Frances Headley DDS [address] [place] [address] [place] [address] Social History Tobacco Use Types Packs/Day Years [...] on filedocumented in this encounter Care Teams Manager Council Relationship Specialty Start Date End Date Zuri Gomez MD [address] [place] [id number] PCP - General Internal Medicine 03/15/20 documented as of this encounter
== END 2025-04-01 11:16 | disposition home or self-care (01) ==
LOC: HO.MAMMO 11:15
PROVIDERS: PCP Internal Medicine; Visit Provider Obstetrics & Gynecology
DX: Z78.0 Asymptomatic menopausal state (principal)
CPT/HCPCS: 77080

== ENCOUNTER → 2025-04-01 11:30 | Outpatient (BNV) | payer OTHER, SELFPAY | PROVIDERS: PCP Internal Medicine; Visit Provider Radiology Diagnostic Radiology | DX: E28.39 Other primary ovarian failure (principal) | CPT/HCPCS: 77080 ==

== ENCOUNTER 2025-04-12 11:50 | Outpatient (AMB) | payer OTHER, SELFPAY ==
--- NOTE | 2025-04-12 11:50 | MHC.OFFVIS ---
Intake Visit Reasons: Tv 2-3 colpo results Nuclear Criticality Safety Engineer Required: No Information Interpreted: non-clinical & clinical Allergies lisinopril (LISINOPRIL) Allergy (Severe, Verified 04/12/25 11:52) ? ANAPHYLAXIS Egg Derived (EGG DERIVED) Allergy (Unknown, Verified 04/12/25 11:52) ANAPHYLAXIS Egg White (Diagnostic) Allergy (Unknown, Uncoded 04/12/25 11:52) GI upset Post menopausal: Yes HPI Comments Details: The patient scheduled a telehealth visit post colpo for follow-up. The patient is doing well with no complaints. The pathology showed the following: A. Endocervix, curettage: Squamous and endocervical glandular epithelium; negative for dysplasia. B. Cervix, 1:00, biopsy: Squamous and endocervical glandular mucosa; negative for dysplasia. Comment: The patient's previous Pap test ([id number]) is reviewed and the atypical cells may represent reactive and atrophic changes PFSH Medical History Eczema Dysplasia of cervix, low grade (LILIANA 1) Transgender Hypercholesterolemia Major depression in partial remission Obesity (BMI 30.0-34.9) HTN (hypertension) Surgical History Hx of colonoscopy (07/22/24) History of dental surgery History of mastectomy Glaucoma, left eye History of oral surgery History of hysterectomy Family History Father No problems noted. Mother Breast cancer Brother AIDS Maternal Aunt Colon cancer Other Mental health disorder Substance use disorder Social History Housing: House Alcohol intake: current Alcohol intake frequency: does not drink Alcohol type: beer Patient Tobacco Use Status: Never used Tobacco e-Cigarette/Vaping Use: Never Used Second Hand Smoke Exposure: No service: No Current occupational status: employed Cognitive needs: No Hearing needs: No Vision needs: Yes (glasses) Female Reproductive History Menstrual Age of Menarche: 12 Review of Systems Const All systems reviewed & are unremarkable except as noted in HPI and below Reports as per HPI and Reports no additional complaints GI Reports no additional complaints Reports no additional complaints Telehealth Telehealth Telehealth Platform: [facility] Location of provider rendering services: practice address Location of patient: address on file Patient Identification confirmed using: Name, : Yes Telehealth method: video Patient verbally consented to treatment: Yes Patient verbally consented to billing insurance company: Yes Patient informed of any privacy concerns related to visit: Yes Minutes spent on Phone/Video with Pt.: 5 Assessment & Plan Assessment & Plan (1) ASCUS of cervix with negative high risk HPV: Comment: Preceded by LILIANA 1 in 11/29 Code(s): R87.610 - Atypical squamous cells of undetermined significance on cytologic smear of cervix (ASC-US) Category: Medical Plan: Discussed with the patient the pathology results of the colposcopy biopsies & endocervical curettage ( mild dysplasia-LILIANA 1). Discussed with the patient the sensitivity specificity, positive and negative predictive value in detecting cervical cancer in addition discussed the regression, persistence and progression rates. Recommended co-testing in 12 months, if cytology and or HPV are abnormal will proceed was colposcopy biopsy and endocervical curettage. Instructions given to the patient to schedule a co test appointment in 1 year. All questions answered the patient verbalized understanding. (2) Osteopenia: Code(s): M85.80 - Other specified disorders of bone density and structure, unspecified site Category: Medical Plan: Discussed with the patient the DEXA results and FRAX risk. FRAX risk and T score showed no evidence of osteoporosis. Discussed with the patient all the options for osteoporosis prevention including lifestyle modifications including Ca+D supplements 1200 mg po qd/800 MIU, Weight bearing exercises and proteine supplements. The patient verbalized understanding and agreed plan will repeat DEXA in 2 years. I spent a total of 20 minutes reviewing the chart, talking to the patient via video and documenting in the medical record. Coding Level of Care Code Tele Est Pt Level 3 (59208) Diagnoses ASCUS of cervix with negative high risk HPV R87.610 Osteopenia M85.80
--- OUTSIDE RECORDS SUMMARY | 2025-04-12 14:01 | XMS_ITS | Encounter Summary ---
Author Organization [facility] Address [address] [place] [address] Care Team Providers Care Ceo And Co Founder Name Role Phone Zuri Gomez MD Primary Care Provider Unavailabl e Encounter Details Date Type Department Care Team (Late st Contact Info) Description 06/15/2020 Orders Only [place] [phone] Frances Headley DDS [address] [place] [address] [place] [address] Social History Tobacco Use Types Packs/Day Years [...] on filedocumented in this encounter Care Teams Ceo And Co Founder Relationship Specialty Start Date End Date Zuri Gomez MD [address] [place] [id number] PCP - General Internal Medicine 03/15/20 documented as of this encounter
--- OUTSIDE RECORDS SUMMARY | 2025-04-12 14:01 | XMS_ITS | Clinical Summary ---
Author Organization [facility] Address [address] [place] [address] Care Team Providers Care Reporting Analyst Name Role Phone Pcp, Zuri MD Primary [...] GENERIC MEDICARE PART A ONLY Care Teams Reporting Analyst Relationship Specialty Start Date End Date Zuri Gomez MD [address] [place] [address] PCP - General Internal Medicine 03/15/20
== END 2025-04-12 13:20 | disposition home or self-care (01) ==
LOC: HO.HWS 11:50
PROVIDERS: PCP Internal Medicine; Visit Provider Obstetrics & Gynecology
DX: R87.610 Atypical squamous cells of undetermined significance on cytologic smear of cervix (ASC-US) (principal); M85.80 Other specified disorders of bone density and structure, unspecified site
CPT/HCPCS: 98004

== ENCOUNTER 2025-04-27 11:10 | Outpatient (AMB) | payer OTHER, SELFPAY ==
--- NOTE | 2025-04-27 11:10 | MHC.OFFVIS ---
Intake Visit Reasons: Tv dexa follow up Allergies lisinopril (LISINOPRIL) Allergy (Severe, Verified 04/12/25 11:52) ? ANAPHYLAXIS Egg Derived (EGG DERIVED) Allergy (Unknown, Verified 04/12/25 11:52) ANAPHYLAXIS Egg White (Diagnostic) Allergy (Unknown, Uncoded 04/12/25 11:52) GI upset HPI Comments Details: The patient scheduled a telehealth visit for follow up regarding DEXA scan which showed the following: The bone mineral density of the lumbar spine is 1.438 g/cm2, corresponding to a T-score of 2.2, and a Z-score of 2.6. This is indicative of normal bone mineral density. This represents a BMD change of -9.1% compared to the prior exam. This is statistically significant. The bone mineral density of the left total hip is 1.030 g/cm2, corresponding to a T-score of 0.2, and a Z-score of 0.2. This is indicative of normal bone mineral density. This represents a BMD change of -7.8% compared to the prior exam. This is statistically significant. The bone mineral density of the left femoral neck is 0.961 g/cm2, corresponding to a T-score of -0.6, and a Z-score of -0.2. This is indicative of normal bone mineral density. This represents a BMD change of -8.5% compared to the prior exam. FRACTURE RISK: The FRAX index suggests a ten year probability of major osteoporotic fracture of 3.4%, and of hip fracture 0.2%. [facility] Medical History Eczema Dysplasia of cervix, low grade (LILIANA 1) Transgender Hypercholesterolemia Major depression in partial remission Obesity (BMI 30.0-34.9) HTN (hypertension) Surgical History Hx of colonoscopy (07/22/24) History of dental surgery History of mastectomy Glaucoma, left eye History of oral surgery History of hysterectomy Family History Father No problems noted. Mother Breast cancer Brother AIDS Maternal Aunt Colon cancer Other Mental health disorder Substance use disorder Social History Housing: House Alcohol intake: current Alcohol intake frequency: does not drink Alcohol type: beer Patient Tobacco Use Status: Never used Tobacco e-Cigarette/Vaping Use: Never Used Second Hand Smoke Exposure: No service: No Current occupational status: employed Cognitive needs: No Hearing needs: No Vision needs: Yes (glasses) Female Reproductive History Menstrual Age of Menarche: 12 Review of Systems Const All systems reviewed & are unremarkable except as noted in HPI and below Reports as per HPI and Reports no additional complaints GI Reports no additional complaints Reports no additional complaints Telehealth Telehealth Telehealth Platform: [employer] Location of provider rendering services: practice address Location of patient: address on file Patient Identification confirmed using: Name, : Yes Telehealth method: video Patient verbally consented to treatment: Yes Patient verbally consented to billing insurance company: Yes Patient informed of any privacy concerns related to visit: Yes Minutes spent on Phone/Video with Pt.: 3 Assessment & Plan Assessment & Plan (1) Osteopenia: Code(s): M85.80 - Other specified disorders of bone density and structure, unspecified site Category: Medical Plan: Discussed with the patient the DEXA results and FRAX risk. FRAX risk and T score showed no evidence of osteoporosis. Discussed with the patient all the options for osteoporosis prevention including lifestyle modifications including Ca+D supplements 1200 mg po qd/800 MIU, Weight bearing exercises and proteine supplements. The patient verbalized understanding and agreed plan will repeat DEXA in 2 years. I spent a total of 20 minutes reviewing the chart, talking to the patient via video and documenting in the medical record. Coding Level of Care Code Tele Est Pt Level 3 (90004) Diagnoses Osteopenia M85.80
--- OUTSIDE RECORDS SUMMARY | 2025-04-27 14:50 | XMS_ITS | Encounter Summary ---
Author Organization [facility] Address [address] [place] [address] Care Team Providers Care Awning Frame Maker Name Role Phone Zuri Gmoez MD Primary Care Provider Unavailabl e Encounter Details Date Type Department Care Team (Late st Contact Info) Description 06/15/2020 Orders Only [place] [phone] Frances Headley DDS [address] [place] [address] [place] [address] Social History Tobacco Use Types Packs/Day Years [...] on filedocumented in this encounter Care Teams Awning Frame Maker Relationship Specialty Start Date End Date Zuri Gomez MD [address] [place] [id number] PCP - General Internal Medicine 03/15/20 documented as of this encounter
--- OUTSIDE RECORDS SUMMARY | 2025-04-27 14:50 | XMS_ITS | Clinical Summary ---
Author Organization [facility] Address [address] [place] [address] Care Team Providers Care Dog Boarder Name Role Phone Pcp, Zuri MD Primary [...] GENERIC MEDICARE PART A ONLY Care Teams Dog Boarder Relationship Specialty Start Date End Date Zuri Gomez MD [address] [place] [address] PCP - General Internal Medicine 03/15/20
== END 2025-04-27 11:50 | disposition home or self-care (01) ==
LOC: HO.HWS 11:10
PROVIDERS: PCP Internal Medicine; Visit Provider Obstetrics & Gynecology
DX: M85.80 Other specified disorders of bone density and structure, unspecified site (principal)
CPT/HCPCS: 99499